=== PATIENT | male | born 1955 | race American Indian/Alaskan Native ===

== ENCOUNTER 2017-04-03 17:19 | Inpatient (IN) | payer OTHER ==
[2017-04-03 18:20] LABS: MEAN CELL VOLUME 78.4 fL (80.0-105.0); MEAN PLATELET VOLUME 9.9 fl (7.0-11.0); PLATELET COUNT 427 10^3/uL (120.0-450.0); RED CELL DISTRIBUTION WIDTH 16.5 % (11.5-14.5); WHITE BLOOD COUNT 11.8 10^3/ul (4.5-11.0)
[2017-04-03 18:22] LABS: ALBUMIN 4.1 g/dL (3.0-4.8); ALT/SGPT 19 U/L (7-56); AST/SGOT 25 U/L (15-59); BLOOD UREA NITROGEN 11 mg/dL (7-21); CALCIUM 9.3 mg/dL (8.4-10.5); GFR AFRICAN-AMERICAN > 60; GFR NON-AFRICAN AMERICAN > 60
--- NOTE | 2017-04-03 18:26 | ED PDOC ---
Arrival/HPI <Rodolfo Villalpando - Last Filed: 04/03/17 19:14> <Sigifredo Cuello - Last Filed: 04/03/17 22:50> - General Chief Complaint: Abdominal Pain Time Seen by Provider: 04/03/17 17:26 - History of Present Illness Narrative History of Present Illness (Text): 04/03/17 18:04 Mr. Carcamo is a 62 year old male with past medical history significant for DM2, Hypertension, and elevated cholesterol who presents with a 24 hour history of abdominal pain. Pt reports yesterday around noon he ate sausage links and fries and following his meal he began to experience abdominal discomfort. He describes the pain as an intermittent sharp pain located primarily mid epigastrium with associated left sided abdominal pain. The pain is worsened with palpation with no relieving factors reported. He has experienced nausea and vomiting. He denies chest pressure, shortness of breath, pleuritic pain, or change in bowel. (Sigifredo Cuello) Past Medical History - Provider Review Nursing Documentation Reviewed: Yes - Cardiac Hx Hypertension: Yes - Endocrine/Metabolic Hx Diabetes Mellitus Type 2: Yes - Psychiatric Hx Substance Use: No - Suicidal Assessment Feels Threatened In Home Enviroment: No <Sigifredo Cuello - Last Filed: 04/03/17 22:50> Family/Social History - Physician Review Nursing Documentation Reviewed: Yes Family/Social History: No Known Family HX Smoking Status: Unknown If Ever Smoked Hx Alcohol Use: No Hx Substance Use: No <Sigifredo Cuello - Last Filed: 04/03/17 22:50> Allergies/Home Meds <Rodolfo Villalpando - Last Filed: 04/03/17 19:14> <Sigifredo Cuello - Last Filed: 04/03/17 22:50> Allergies/Adverse Reactions: Allergies No Known Allergies Allergy (Unverified 06/20/13 19:09) Home Medications: Home Meds Medication Instructions Recorded Confirmed No Known Home Med 04/03/17 04/03/17 Review of Systems - Physician Review All systems were reviewed & negative as marked: Yes - Review of Systems Constitutional: absent: Fevers Eyes: absent: Vision Changes Respiratory: absent: SOB, Cough Cardiovascular: absent: Chest Pain, Palpitations Gastrointestinal: Abdominal Pain, Nausea, Vomiting. absent: Stool Changes Genitourinary Male: Frequency (increased ). absent: Dysuria Skin: absent: Rash, Skin Lesions Neurological: absent: Headache, Dizziness, Focal Weakness <Sigifredo Cuello - Last Filed: 04/03/17 22:50> Physical Exam Vital Signs Reviewed: Yes Temperature: Afebrile Blood Pressure: Normal Pulse: Tachycardic Respiratory Rate: Normal Appearance: Positive for: Uncomfortable Pain Distress: Moderate Mental Status: Positive for: Alert and Oriented X 3 - Systems Exam Head: Present: Atraumatic, Normocephalic Pupils: Present: PERRL Extroacular Muscles: Present: EOMI Conjunctiva: Present: Normal Mouth: Present: Dry. No: Normal Teeth (poor dentation ) Respiratory/Chest: Present: Clear to Auscultation, Good Air Exchange. No: Respiratory Distress, Accessory Muscle Use Cardiovascular: Present: Regular Rate and Rhythm, Normal S1, S2, Tachycardic. No: Murmurs Abdomen: Present: Tenderness (TTP mid epigastric, LLQ, LUQ). No: Peritoneal Signs Upper Extremity: Present: Normal Inspection. No: Cyanosis, Edema Lower Extremity: Present: Normal Inspection Neurological: Present: GCS=15, CN II-XII Intact, Speech Normal Psychiatric: Present: Alert, Oriented x 3, Normal Insight, Normal Concentration <Sigifredo Cuello - Last Filed: 04/03/17 22:50> Vital Signs Temp Pulse Resp BP Pulse Ox 04/03/17 21:25 104 H 16 140/80 98 04/03/17 20:01 102 H 18 128/71 99 04/03/17 19:00 112 H 18 126/74 99 04/03/17 17:19 99.2 F 126 H 17 148/90 96 Medical Decision Making <Rodolfo Villalpando - Last Filed: 04/03/17 19:14> - Lab Interpretations I have reviewed the lab results: Yes - EKG Interpretation Interpreted by ED Physician: Yes Type: 12 lead EKG <Sigifredo Cuello - Last Filed: 04/03/17 22:50> ED Course and Treatment: 04/03/17 18:54 Patient seen and examined with resident Came up with treatment and disposition plan with resident 62yo male with hx of DM, states he is non-compliant with his metformin. presents with nausea, abd pain labs show a gap, CO2 6, Glu >400 likely DKA VBG ordered fluids, insulin drip ordered (k 4.4) mohnii Lebron from MICU, accepted admission pt states he has no PMD at this hospital Dr. Jean Baptiste covering paged 04/03/17 19:14 mohini Sands, accepted to Dr. Jean Baptiste' service pt aware of and agrees with plan (Rodolfo Villalpando) 04/03/17 18:28 Impression: Mr. Carcamo is a 62 year old male with past medical history of DM2, Hypertension, and elevated cholesterol who presents with abdominal discomfort for the past 24 hours. Differential Diagnosis included but are not limited to: - DKA - Gastritis - Diverticulitis Plan: - Labs: CBC, CMP, VBG - Imaging: EKG, CT abdomen and pelvis with IV contrast - Meds: IVF NS bolus, Insulin gtt - Reassess and disposition Progress Notes: (Sigifredo Cuello) - Lab Interpretations Lab Results: 04/03/17 17:50 04/03/17 21:45 Lab Results 04/03/17 21:45: Sodium 134, Potassium 4.2, Chloride 106, Carbon Dioxide 9 L D, Anion Gap 23 H, BUN 11, Creatinine 0.9, Est GFR ( Amer) > 60, Est GFR ( Non-Af Amer) > 60, Random Glucose 300 H, Calcium 8.3 L, Amylase 320 H, Lipase 3186 H 04/03/17 19:05: Urine Color Yellow, Urine Appearance Clear, Urine pH 6.0, Ur Specific [place] 1.015, Urine Protein 30 H, Urine Glucose (UA) >=1000, Urine Ketones >=80, Urine Blood Small H, Urine Nitrate Negative, Urine Bilirubin Negative, Urine Urobilinogen 0.2, Ur Leukocyte Esterase Negative, Urine RBC 1 - 3, Urine WBC 0 - 2, Ur Epithelial Cells 0 - 2 04/03/17 19:00: pO2 65 H, VBG pH 7.31 L, VBG pCO2 26.0 L, VBG HCO3 13.1 L, VBG Total CO2 13.9 L, VBG O2 Sat (Calc) 93.2 H, VBG Base Excess -11.5 L, VBG Potassium 4.6, Glucose 441 H*, Lactate 2.0, FiO2 21.0, Sodium 135.0, Chloride 100.0, Venous Blood Potassium 4.6 04/03/17 17:50: Sodium 134, Potassium 4.4, Chloride 101, Carbon Dioxide 7 L, Anion Gap 30 H, BUN 11, Creatinine 1.0, Est GFR ( Amer) > 60, Est GFR ( Non-Af Amer) > 60, Random Glucose 423 H*, Calcium 9.3, Total Bilirubin 1.0, AST 25, ALT 19, Alkaline Phosphatase 144 H, Total Protein 8.2, Albumin 4.1, Globulin 4.2, Albumin/Globulin Ratio 1.0 L, Lipase 4438 H 04/03/17 17:50: WBC 11.8 H, RBC 5.00, Hgb 15.3, Hct 39.2 L, MCV 78.4 L, MCH 30.6 , MCHC 39.0 H, RDW 16.5 H, Plt Count 427, MPV 9.9, Neutrophils % (Manual) 81 H, Band Neutrophils % 3 H, Lymphocytes % (Manual) 7 L, Monocytes % (Manual) 9 H, Platelet Evaluation Normal - RAD Interpretation Radiology Orders: 04/03/17 19:15 CHEST PORTABLE [RAD] Stat 04/03/17 19:17 ABD PELVIS PO & IV CONTRAST [CT] Stat - EKG Interpretation EKG Interpretation (Text): 04/03/17 18:46 NSR, Rate 119, left axis deviation, No ST elevations or T wave inversions ( Sigifredo Cuello) - Medication Orders Current Medication Orders: Insulin Human Regular 100 (units/ Sodium Chloride) 100 mls @ 10 mls/hr IV .Q10H PRN; Protocol; 10 UNITS/HR PRN Reason: TITRATE PER PROTOCOL Discontinued Medications Sodium Chloride (Sodium Chloride 0.9%) 1,000 mls @ 100 mls/hr IV .Q10H BUNNY Last Admin: 04/03/17 18:54 Dose: 100 mls/hr Sodium Chloride (Sodium Chloride 0.9%) 2,000 mls @ 1,000 mls/hr IV .Q2H STA Stop: 04/03/17 20:33 Last Admin: 04/03/17 18:53 Dose: 1,000 mls/hr Insulin Human Regular 100 (units/ Sodium Chloride) 100 mls @ 10 mls/hr IV .Q10H PRN; Protocol; 10 UNITS/HR PRN Reason: TITRATE PER MD ORDER Last Admin: 04/03/17 20:49 Dose: 3 mls/hr Comments: as per protocol 276 FS Sodium Chloride (Sodium Chloride 0.9%) 2,000 mls @ 999 mls/hr IV .Q2H1M STA Stop: 04/03/17 21:30 Last Admin: 04/03/17 20:24 Dose: Sodium Chloride (Sodium Chloride 0.9%) 1,000 mls @ 500 mls/hr IV .Q2H BUNYN Stop: 04/03/17 22:44 Last Admin: 04/03/17 22:08 Dose: 500 mls/hr Insulin Human Regular 100 (units/ Sodium Chloride) 100 mls @ 10 mls/hr IV .Q10H PRN; Protocol; 10 UNITS/HR PRN Reason: TITRATE PER PROTOCOL Last Admin: 04/03/17 21:52 Dose: 4 mls/hr Comments: 4 units as per sliding scale protocol for blood sugar of 303 Iohexol (Omnipaque 240 (50 Ml)) Confirm Administered Dose 100 ml .ROUTE .STK- MED ONE Stop: 04/03/17 19:40 Iohexol (Omnipaque 350 100 Ml) Confirm Administered Dose 350 mg .ROUTE .STK-MED ONE Stop: 04/03/17 19:40 - PA / [employer] / Resident Statement / has reviewed & agrees with the documentation as recorded. / has examined the patient and agrees with the treatment plan. <Sigifredo Cuello - Last Filed: 04/03/17 22:50> Disposition/Present on Arrival - Present on Arrival Any Indicators Present on Arrival: No - Disposition Have Diagnosis and Disposition been Completed?: Yes Disposition Time: 18:56 Patient Plan: Admission, ICU <Rodolfo Villalpando - Last Filed: 04/03/17 19:14> - Present on Arrival Any Indicators Present on Arrival: No History of DVT/PE: No History of Uncontrolled Diabetes: No Urinary Catheter: No History of Decub. Ulcer: No History Surgical Site Infection Following: None - Disposition Have Diagnosis and Disposition been Completed?: Yes Patient Plan: Admission, ICU <Sigifredo Cuello - Last Filed: 04/03/17 22:50> - Disposition Diagnosis: DKA (diabetic ketoacidoses) Disposition: HOSPITALIZED Condition: STABLE
[2017-04-03 18:28] LABS: HEMOGLOBIN 15.3 gm/dL (14.0-18.0)
[2017-04-03 18:29] LABS: MEAN CORPUSCULAR HEMOGLOBIN 30.6 pg (25.0-35.0)
[2017-04-03] MEDS ORDERED: Sodium Chloride 0.9% 2,000 ML IV STA ×2 (18:34→19:30)
[2017-04-03] MEDS ORDERED: Sodium Chloride 0.9% 1,000 ML IV SCH (18:45)
[2017-04-03 18:54] LABS: BAND 3 % (0-2)
[2017-04-03 18:55] LABS: LYMPHOCYTE 7 % (22.0-35.0); MONOCYTE 9 % (1.0-6.0); NEUTROPHIL 81 % (50.0-70.0); PLATELET ESTIMATE NORMAL (NORMAL)
[2017-04-03 19:08] LABS: VENOUS BLOOD GAS BASE EXCESS -11.5 mmol/L (0.0-2.0); VENOUS BLOOD GAS PO2 65 mm/Hg (30-55); VENOUS BLOOD PH 7.31 (7.32-7.43)
[2017-04-03 19:15] LABS: URINE BILIRUBIN NEGATIVE (NEGATIVE); URINE BLOOD SMALL (NEGATIVE); URINE GLUCOSE (UA) >=1000 mg/dL (NEGATIVE); URINE LEUKOCYTE ESTERASE NEGATIVE Leu/uL (NEGATIVE); URINE NITRATE NEGATIVE (NEGATIVE); URINE PROTEIN 30 mg/dL (<30 mg/dL); URINE UROBILINOGEN 0.2 E.U./dL (<1 E.U./dL)
[2017-04-03 19:21] LABS: URINE APPEARANCE CLEAR (CLEAR); URINE COLOR YELLOW (YELLOW)
[2017-04-03 19:21] LABS: LIPASE 4438 U/L (23-300)
[2017-04-03] MEDS: Insulin Regular 100 UNITS in Sodium Chloride 0.9% 99 ML IV PRN ×3 (19:30→20:49)
--- NOTE | 2017-04-03 19:30 | CP.PCM.CON ---
History of Present Illness - History of Present Illness History of Present Illness: 62 y/o M w/ HTN, DM who has been without medications for grater than 1 year presented to the [facility] after 6 episodes of vomiting that occurred starting yesterday . He explains that he ate out somewhere new and then felt bad afterwards. Since then he has been urinating frequently and having abd pain. Review of Systems - Constitutional Constitutional: Malaise - EENT Eyes: absent: As Per HPI, Blind Spots, Blurred Vision, Change in Vision, Decreased Night Vision, Diplopia, Discharge, Dry Eye, Exophthalmos, Floaters, Irritation, Itchy Eyes, Loss of Peripheral Vision, Pain, Photophobia, Requires Corrective Lenses, Sees Flashes, Spots in Vision, Tunnel Vision, Other Visual Disturbances, Loss of Vision, Other Ears: absent: As Per HPI, Decreased Hearing, Ear Discharge, Ear Pain, Tinnitus, Abnormal Hearing, Disequilibrium, Dizziness, Other Nose/Mouth/Throat: absent: As Per HPI, Epistaxis, Nasal Congestion, Nasal Discharge, Nasal Obstruction, Nasal Trauma, Nose Pain, Post Nasal Drip, Sinus Pain, Sinus Pressure, Bleeding Gums, Change in Voice, Dental Pain, Dry Mouth, Dysphagia, Halitosis, Hoarsness, Lip Swelling, Mouth Lesions, Mouth Pain, Odynophagia, Sore Throat, Throat Swelling, Tongue Swelling, Facial Pain, Neck Pain, Neck Mass, Other - Cardiovascular Cardiovascular: absent: As Per HPI, Acrocyanosis, Chest Pain, Chest Pain at Rest , Chest Pain with Activity, Claudication, Diaphoresis, Dyspnea, Dyspnea on Exertion, Edema, Irregular Heart Rhythm, Pain Radiating to Arm/Neck/Jaw, Leg Edema, Leg Ulcers, Lightheadedness, Orthopnea, Palpitations, Paroxysmal Nocturnal Dyspnea, Pedal Edema, Radiating Pain, Rapid Heart Rate, Slow Heart Rate, Syncope, Other - Respiratory Respiratory: absent: As Per HPI, Cough, Dyspnea, Hemoptysis, Dyspnea on Exertion , Wheezing, Snoring, Stridor, Pain on Inspiration, Chest Congestion, Excessive Mucous Production, Change in Mucous Color, Pain with Coughing, Other - Gastrointestinal Gastrointestinal: Abdominal Pain, Belching, Bloating, Dyspepsia - Genitourinary Genitourinary: absent: As Per HPI, Change in Urinary Stream, Difficulty Urinating, Dysuria, Flank Pain, Hematuria, Pyuria, Nocturia, Urinary Incontinence, Urinary Frequency, Urinary Hesitance, Urinary Urgency, Voiding Freq/Small Amts, Freq UTI, Hx Renal/Bladder Calculi, Hx /Renal Surgery, Bladder Distension, Other - Reproductive: Male Reproductive:Male: As Per HPI, Prepubesant, Dyspareunia, Genital Lesions, Genital Pruritis, Pelvic Pain, Sexual Dysfunction, Penile Discharge, Genital Odor, Impotence, On ED Medications, Penile Implant, Other - Musculoskeletal Musculoskeletal: absent: As Per HPI, Abnormal Gait, Arthralgias, Atrophy, Back Pain, Deformity, Joint Swelling, Limited Range of Motion, Loss of Height, Muscle Cramps, Muscle Weakness, Myalgias, Neck Pain, Numbness, Radiating Pain into Limb, Stiffness, Tingling, Other - Integumentary Integumentary: absent: As Per HPI, Acne, Alopecia, Bleeding Lesions, Change in Hair, Change in Nails, Change in Pigmentation, Changing Lesions, Dry Skin, Erythema, Furuncle, Hirsutism, Lesions, New Lesions, Non-Healing Lesions, Photosensitivity, Pruritus, Rash, Skin Pain, Skin Ulcer, Sores, Striae, Swelling , Unusual Bruising, Wounds, Jaundice, Other - Neurological Neurological: absent: As Per HPI, Abnormal Gait, Abnormal Hearing, Abnormal Movements, Abnormal Speech, Behavioral Changes, Burning Sensations, Confusion, Convulsions, Disequilibrium, Dizziness, Numbness, Focal Weakness, Frequent Falls , Headaches, Lack of Coordination, Loss of Vision, Memory Loss, Paresthesias, Radicular Pain, Restless Legs, Sensory Deficit, Syncope, Tingling, Tremor, Vertigo, Weakness, Other Visual Disturbances, Other Past Patient History - Past Social History Smoking Status: Unknown If Ever Smoked - CARDIAC Hx Hypertension: Yes - ENDOCRINE/METABOLIC Hx Diabetes Mellitus Type 2: Yes - PSYCHIATRIC Hx Substance Use: No - SURGICAL HISTORY Hx Surgeries: Yes Meds Allergies/Adverse Reactions: Allergies Allergy/AdvReac Type Severity Reaction Status Date / Time No Known Allergies Allergy Unverified 06/20/13 19:09 - Medications Medications: Current Medications Sodium Chloride (Sodium Chloride 0.9%) 1,000 mls @ 100 mls/hr IV .Q10H BUNNY Last Admin: 04/03/17 18:54 Dose: 100 mls/hr Sodium Chloride (Sodium Chloride 0.9%) 2,000 mls @ 1,000 mls/hr IV .Q2H STA Stop: 04/03/17 20:33 Last Admin: 04/03/17 18:53 Dose: 1,000 mls/hr Insulin Human Regular 100 (units/ Sodium Chloride) 100 mls @ 10 mls/hr IV .Q10H PRN; Protocol; 10 UNITS/HR PRN Reason: TITRATE PER MD ORDER Physical Exam - Constitutional Appears: Unkempt - Head Exam Head Exam: ATRAUMATIC, NORMAL INSPECTION - Eye Exam Eye Exam: EOMI, Normal appearance Pupil Exam: NORMAL ACCOMODATION - ENT Exam ENT Exam: Mucous Membranes Moist - Respiratory Exam Respiratory Exam: Clear to Auscultation Bilateral - Cardiovascular Exam Cardiovascular Exam: REGULAR RHYTHM - GI/Abdominal Exam GI & Abdominal Exam: Guarding, Normal Bowel Sounds, Tenderness - Extremities Exam Extremities exam: Positive for: normal inspection - Back Exam Back exam: NORMAL INSPECTION - Neurological Exam Neurological exam: Alert, CN II-XII Intact, Oriented x3 Results - Vital Signs Recent Vital Signs: Last Vital Signs Temp 99.2 F 04/03/17 17:19 Pulse 126 H 04/03/17 17:19 Resp 17 04/03/17 17:19 BP 148/90 04/03/17 17:19 Pulse Ox 96 04/03/17 17:19 - Labs Result Diagrams: 04/03/17 17:50 04/03/17 17:50 Labs: Laboratory Results - last 24 hr 04/03/17 04/03/17 04/03/17 17:50 17:50 19:00 WBC 11.8 H RBC 5.00 Hgb 15.3 Hct 39.2 L MCV 78.4 L MCH 30.6 MCHC 39.0 H RDW 16.5 H Plt Count 427 MPV 9.9 Neutrophils % (Manual) 81 H Band Neutrophils % 3 H Lymphocytes % (Manual) 7 L Monocytes % (Manual) 9 H Platelet Evaluation Normal pO2 65 H VBG pH 7.31 L VBG pCO2 26.0 L VBG HCO3 13.1 L VBG Total CO2 13.9 L VBG O2 Sat (Calc) 93.2 H VBG Base Excess -11.5 L VBG Potassium 4.6 Glucose 441 H* Lactate 2.0 FiO2 21.0 Sodium 134 135.0 Potassium 4.4 Chloride 101 100.0 Carbon Dioxide 7 L Anion Gap 30 H BUN 11 Creatinine 1.0 Est GFR ( Amer) > 60 Est GFR (Non-Af Amer) > 60 Random Glucose 423 H* Calcium 9.3 Total Bilirubin 1.0 AST 25 ALT 19 Alkaline Phosphatase 144 H Total Protein 8.2 Albumin 4.1 Globulin 4.2 Albumin/Globulin Ratio 1.0 L Lipase 4438 H Venous Blood Potassium 4.6 Urine Color Urine Appearance Urine pH Ur Specific [place] Urine Protein Urine Glucose (UA) Urine Ketones Urine Blood Urine Nitrate Urine Bilirubin Urine Urobilinogen Ur Leukocyte Esterase 04/03/17 19:05 WBC RBC Hgb Hct MCV MCH MCHC RDW Plt Count MPV Neutrophils % (Manual) Band Neutrophils % Lymphocytes % (Manual) Monocytes % (Manual) Platelet Evaluation pO2 VBG pH VBG pCO2 VBG HCO3 VBG Total CO2 VBG O2 Sat (Calc) VBG Base Excess VBG Potassium Glucose Lactate FiO2 Sodium Potassium Chloride Carbon Dioxide Anion Gap BUN Creatinine Est GFR ( Amer) Est GFR (Non-Af Amer) Random Glucose Calcium Total Bilirubin AST ALT Alkaline Phosphatase Total Protein Albumin Globulin Albumin/Globulin Ratio Lipase Venous Blood Potassium Urine Color Yellow Urine Appearance Clear Urine pH 6.0 Ur Specific [place] 1.015 Urine Protein 30 H Urine Glucose (UA) >=1000 Urine Ketones >=80 Urine Blood Small H Urine Nitrate Negative Urine Bilirubin Negative Urine Urobilinogen 0.2 Ur Leukocyte Esterase Negative Assessment & Plan - Assessment and Plan (Free Text) Assessment: 62 y/o M w/ DKA AG metabolic acidosis Non compliant with medications Increased AG w/ elevated BS . Started on DKA protocol. 3-5L of N.S to be given. Insulin drip started to protocol, Replace K once it reaches 4. BMP q 4hrs . Replace Mg. NPO. Once BS< 250 change fluids to D%HS @ 150ml/hr . Once AG closed then overlap Long acting insulin with the insulin drip and also start Insulin sliding scale. CT abd/ pelvis w/ contrast to r/o any colitis/ perforation of bowel. Lactate , WBC minimal elevation. May need ABX after CT is completed. Serial abd exam needed and may need surgical consult . Amylase, Lipase pending. dvt p PPi CC time 65 min
[2017-04-03] MEDS ORDERED: Iohexol 350 MG/100 ML VIAL ONE (19:39)
[2017-04-03] MEDS ORDERED: Iohexol 240 (50 ml) ONE (19:39)
[2017-04-03 19:40] LABS: URINE EPITHELIAL CELLS 0 - 2 /hpf (0-5); URINE WBC 0 - 2 /hpf (0-6)
--- NOTE | 2017-04-03 19:56 | CP.PCM.HP ---
History of Present Illness - History of Present Illness History of Present Illness: Patient is a 62 year old male PMH DM II, HTN, HLD who presents [place] [facility] on 04/03/17 with complaints of diffuse abdominal pain which started 04/02/17 around 12:30 pm after eating sausage and fries. Patient states that the pain has continued until now. He states that the pain starts in the epigastric area and radiates bilaterally down to the suprapubic area and around his back on the right side. He states that the pain is neither dull nor sharp and rates it at an 8/10. The pain is exacerbated depending on position, with laying on his right side causing increased pain and laying on his left side causing decreased pain. He denies any relieving factors. Laying on his left side allows him to sleep throughout the night, however immediately upon awakening the pain returns. Patient denies being woken up due to pain itself. Patient states that when he was first diagnosed with DM II two years ago he was prescribed janumet, but after a year his glucose levels were good enough that his PMD switched him to januvia and invocana. After seeing commercials regarding lawsuits against invocana he decided to stop taking the medication all together, and has not taken his DM medications in one year. He also decided to stop taking his HTN and HLD medications as well. He states that since then he has gained some weight. He continues to monitor his sugars with levels ranging normally in the 200s. His last finger stick at home today revealed a level in the 400s according to patient. Patient denies chest pain, shortness of breath, headache, numbness and tingling. Present on Admission - Present on Admission Any Indicators Present on Admission: No Review of Systems - Constitutional Constitutional: Weight Gain. absent: Headache, Increased Appetite - EENT Eyes: absent: Blurred Vision, Loss of Vision - Cardiovascular Cardiovascular: absent: Chest Pain, Palpitations - Respiratory Respiratory: absent: Dyspnea, Wheezing - Gastrointestinal Gastrointestinal: Abdominal Pain, Nausea, Vomiting - Neurological Neurological: absent: Dizziness, Numbness, Headaches Past Patient History - Past Social History Smoking Status: Unknown If Ever Smoked - CARDIAC Hx Hypertension: Yes - ENDOCRINE/METABOLIC Hx Diabetes Mellitus Type 2: Yes - PSYCHIATRIC Hx Substance Use: No - SURGICAL HISTORY Hx Surgeries: Yes Meds Allergies/Adverse Reactions: Allergies Allergy/AdvReac Type Severity Reaction Status Date / Time No Known Allergies Allergy Unverified 06/20/13 19:09 Physical Exam - Constitutional Appears: In Acute Distress, Agitated - Head Exam Head Exam: ATRAUMATIC, NORMAL INSPECTION, NORMOCEPHALIC - Eye Exam Eye Exam: EOMI, Normal appearance - ENT Exam ENT Exam: Mucous Membranes Moist, Normal Exam - Neck Exam Neck exam: Positive for: Normal Inspection - Respiratory Exam Respiratory Exam: Clear to Auscultation Bilateral, NORMAL BREATHING PATTERN - Cardiovascular Exam Cardiovascular Exam: REGULAR RHYTHM, RRR, +S1, +S2 - GI/Abdominal Exam GI & Abdominal Exam: Normal Bowel Sounds, Soft - Extremities Exam Extremities exam: Positive for: normal inspection. Negative for: joint swelling - Neurological Exam Neurological exam: Alert, Oriented x3 - Skin Skin Exam: Dry, Normal Color, Warm Results - Vital Signs Recent Vital Signs: Last Vital Signs Temp 99.2 F 04/03/17 17:19 Pulse 126 H 04/03/17 17:19 Resp 17 04/03/17 17:19 BP 148/90 04/03/17 17:19 Pulse Ox 96 04/03/17 17:19 - Labs Result Diagrams: 04/04/17 04:05 04/04/17 04:05 Labs: Laboratory Results - last 24 hr 04/03/17 04/03/17 04/03/17 17:50 17:50 19:00 WBC 11.8 H RBC 5.00 Hgb 15.3 Hct 39.2 L MCV 78.4 L MCH 30.6 MCHC 39.0 H RDW 16.5 H Plt Count 427 MPV 9.9 Neutrophils % (Manual) 81 H Band Neutrophils % 3 H Lymphocytes % (Manual) 7 L Monocytes % (Manual) 9 H Platelet Evaluation Normal pO2 65 H VBG pH 7.31 L VBG pCO2 26.0 L VBG HCO3 13.1 L VBG Total CO2 13.9 L VBG O2 Sat (Calc) 93.2 H VBG Base Excess -11.5 L VBG Potassium 4.6 Glucose 441 H* Lactate 2.0 FiO2 21.0 Sodium 134 135.0 Potassium 4.4 Chloride 101 100.0 Carbon Dioxide 7 L Anion Gap 30 H BUN 11 Creatinine 1.0 Est GFR ( Amer) > 60 Est GFR (Non-Af Amer) > 60 Random Glucose 423 H* Calcium 9.3 Total Bilirubin 1.0 AST 25 ALT 19 Alkaline Phosphatase 144 H Total Protein 8.2 Albumin 4.1 Globulin 4.2 Albumin/Globulin Ratio 1.0 L Lipase 4438 H Venous Blood Potassium 4.6 Urine Color Urine Appearance Urine pH Ur Specific [place] Urine Protein Urine Glucose (UA) Urine Ketones Urine Blood Urine Nitrate Urine Bilirubin Urine Urobilinogen Ur Leukocyte Esterase Urine RBC Urine WBC Ur Epithelial Cells 04/03/17 19:05 WBC RBC Hgb Hct MCV MCH MCHC RDW Plt Count MPV Neutrophils % (Manual) Band Neutrophils % Lymphocytes % (Manual) Monocytes % (Manual) Platelet Evaluation pO2 VBG pH VBG pCO2 VBG HCO3 VBG Total CO2 VBG O2 Sat (Calc) VBG Base Excess VBG Potassium Glucose Lactate FiO2 Sodium Potassium Chloride Carbon Dioxide Anion Gap BUN Creatinine Est GFR ( Amer) Est GFR (Non-Af Amer) Random Glucose Calcium Total Bilirubin AST ALT Alkaline Phosphatase Total Protein Albumin Globulin Albumin/Globulin Ratio Lipase Venous Blood Potassium Urine Color Yellow Urine Appearance Clear Urine pH 6.0 Ur Specific [place] 1.015 Urine Protein 30 H Urine Glucose (UA) >=1000 Urine Ketones >=80 Urine Blood Small H Urine Nitrate Negative Urine Bilirubin Negative Urine Urobilinogen 0.2 Ur Leukocyte Esterase Negative Urine RBC 1 - 3 Urine WBC 0 - 2 Ur Epithelial Cells 0 - 2 Assessment & Plan - Assessment and Plan (Free Text) Assessment: 62 year old male with PMH DM HTN HLD presented to [facility] 04/03/17 with DKA and pancreatitis. Plan: 1. DKA - Anion gap 30, Glucose 441, Bicarb 100 - Humulin R 100 units IV 10 units/hr - Potassium chloride 20 meq, once potassium level reaches near 4.0. - Finger stick glucose q 1hour - Neurocheck q1 hour - Vital signs q1 Hour - Patient education on importance of medication compliance 2. Pancreatitis - Continue with NPO - CT abdomen demonstrates enlargement of pancreas with edema and loss of normal fatty lobulation. Findings consistent with acute pancreatitis. - Lipase 3186, Amylase 320 - Continue to monitor I/O - Patient is receiving 0.9% NS 1,000ml IV 999 mls/hr DVT/GI prophylaxis- Pepcid 20 mg IVp daily and knee SCDs
[2017-04-03] MEDS: Sodium Chloride 0.9% 1,000 ML IV SCH ×2 (20:24→22:08)
[2017-04-03 21:59] LABS: AMYLASE 320 U/L (35-125); BLOOD UREA NITROGEN 11 mg/dL (7-21); CALCIUM 8.3 mg/dL (8.4-10.5); GFR AFRICAN-AMERICAN > 60; GFR NON-AFRICAN AMERICAN > 60
[2017-04-03 22:06] LABS: LIPASE 3186 U/L (23-300)
[2017-04-03 22:42] LABS: MAGNESIUM 2.2 mg/dL (1.7-2.2)
[2017-04-03 22:50] LABS: VENOUS BLOOD GAS BASE EXCESS -11.3 mmol/L (0.0-2.0); VENOUS BLOOD GAS PO2 206 mm/Hg (30-55)
[2017-04-03 22:56] LABS: TROPONIN I < 0.01 ng/mL
[2017-04-03] MEDS ORDERED: DiphenhydrAMINE 50 mg/ml Inj IVP STA (23:57)
[2017-04-04] MEDS: Sodium Chloride 0.9% 1,000 ML IV SCH ×2 (00:03→09:33)
--- NOTE | 2017-04-04 00:08 | CT ---
EXAM: CT Abdomen and Pelvis With Intravenous Contrast CLINICAL HISTORY: 62 years old, male; Pain; Abdominal pain; Acute; Additional info: Abd pain TECHNIQUE: Axial computed tomography images of the abdomen and pelvis with intravenous contrast. This CT exam was performed using one or more of the following dose reduction techniques: automated exposure control, adjustment of the mA and/or kV according to patient size, and/or use of iterative reconstruction technique. Coronal and sagittal reformatted images were created and reviewed. CONTRAST: 100 mL of OMNI 3510 administered intravenously. COMPARISON: No relevant prior studies available. FINDINGS: Lower thorax: Bibasilar atelectasis, left greater than right. The heart is enlarged, without pericardial effusion. ABDOMEN: Liver: No acute findings. Gallbladder and bile ducts: The gallbladder is decompressed. No calcified stones. No significant intra- or extrahepatic biliary ductal dilation. Pancreas: Enlargement of the pancreas, with edema and loss of normal fatty lobulation. Peripancreatic fat stranding is also present, along with trace free fluid. The pancreas enhances homogeneously, without areas suggesting necrosis. Spleen: No acute findings. Adrenals: No acute findings. Kidneys and ureters: No acute findings. No hydronephrosis or renal calculi. No discrete solid mass. PELVIS: Bladder: Moderate bladder distention. As Reproductive: No acute findings. Appendix: The air filled appendix is of normal caliber (series 2, image 135; series 601, image 59). ABDOMEN and PELVIS: Stomach and bowel: No obstruction. No mucosal thickening. Peritoneum: As above. Lymph nodes: Multiple enlarged lymph nodes within the retroperitoneum. Vasculature: Calcified atherosclerotic disease Bones: No acute fracture. IMPRESSION: Findings consistent with acute pancreatitis, as detailed above. No evidence of necrosis.
[2017-04-04 00:42] LABS: BLOOD UREA NITROGEN 10 mg/dL (7-21); CALCIUM 8.1 mg/dL (8.4-10.5); GFR AFRICAN-AMERICAN > 60; GFR NON-AFRICAN AMERICAN > 60
[2017-04-04 00:53] VITALS: BMI 32.0
[2017-04-04 04:27] LABS: BLOOD UREA NITROGEN 10 mg/dL (7-21); CALCIUM 8.4 mg/dL (8.4-10.5); GFR AFRICAN-AMERICAN > 60; GFR NON-AFRICAN AMERICAN > 60
[2017-04-04 05:10] LABS: HDL CHOLESTEROL 27 mg/dL (29-60); MAGNESIUM 2.2 mg/dL (1.7-2.2)
[2017-04-04 05:27] LABS: BASO # 0.02 K/mm3 (0.0-2.0); BASO % 0.2 % (0.0-3.0); EOS % 0.2 % (1.5-5.0); GRAN # 7.57 (1.4-6.5); GRAN % 79.2 % (50.0-68.0); HEMOGLOBIN 12.2 gm/dL (14.0-18.0); LYMPH % 10.1 % (22.0-35.0); MEAN CORPUSCULAR HEMOGLOBIN 27.9 pg (25.0-35.0); MEAN CORPUSCULAR HGB CONC 35.8 g/dl (31.0-37.0); MEAN PLATELET VOLUME 9.9 fl (7.0-11.0); MONO % 10.3 % (1.0-6.0); PLATELET COUNT 364 10^3/uL (120.0-450.0); RBC 4.37 10^6/uL (3.5-6.1); RED CELL DISTRIBUTION WIDTH 16.4 % (11.5-14.5); WHITE BLOOD COUNT 9.6 10^3/ul (4.5-11.0)
[2017-04-04 05:35] LABS: LDL CHOLESTEROL < 30 mg/dL (0-129)
[2017-04-04 08:44] LABS: BLOOD UREA NITROGEN 9 mg/dL (7-21); CALCIUM 8.5 mg/dL (8.4-10.5); GFR AFRICAN-AMERICAN > 60; GFR NON-AFRICAN AMERICAN > 60
[2017-04-04 08:51] LABS: FREE T4 1.12 ng/dL (0.78-2.19)
[2017-04-04] MEDS: Morphine 2 mg/ml ISec IVP PRN ×2 (11:03→22:02)
--- NOTE | 2017-04-04 11:42 | RAD ---
HISTORY: cough COMPARISON: No prior. FINDINGS: LUNGS: Linear scar/atelectasis both lower lobes. No pulmonary infiltrate. PLEURA: No significant pleural effusion identified, no pneumothorax apparent. CARDIOVASCULAR: Normal. OSSEOUS STRUCTURES: No significant abnormalities. VISUALIZED UPPER ABDOMEN: Normal. OTHER FINDINGS: None. IMPRESSION: No active disease.
--- NOTE | 2017-04-04 11:56 | PN ---
TECHNICIAN ASSISTANT NOTE DATE: 04/04/2017 SUBJECTIVE: The patient is resting in bed, continues to be on the insulin drip and continues to be . He does have a slight abdominal pain, but no nauseous or vomiting, and no diarrhea today. No fever or chills. No wheezing or shortness of breath. PHYSICAL EXAMINATION: VITAL SIGNS: His temperature is 98.6, pulse is 106, respirations of 16, and his blood pressure is 150/93. SKIN: Warm and dry. HEENT: Head is atraumatic and normocephalic. Eyes are reactive to light. Ears, nose, and throat seemed to be within normal limits. NECK: Supple. No JVD. No thyroid enlargement. No lymph nodes. HEART: Regular rate and rhythm, normal S1 and S2. LUNGS: Reveal good breath sounds bilaterally. ABDOMEN: Soft and somewhat tender to palpations. Decreased bowel sounds. GENITAL AND RECTAL: Deferred. MUSCULOSKELETAL: No joint deformities. EXTREMITIES: Revealed no edema. NEUROLOGICAL: He seems to be grossly intact. LABORATORY DATA: As far as our laboratories are concerned the patient's white count is 9.6, hemoglobin is 12.2 and hematocrit 34.1, with platelets of 364,000. Sodium is 140, potassium is 4.0, chloride is 110, CO2 is 14 with a BUN of 10, creatinine of 0.7, and a glucose of 201. The patient's triglycerides are 2283 and cholesterol is 314. IMPRESSION: As far as my impression; this patient presented with diabetes ketoacidosis, has a history of diabetes and also he is noted to have pancreatitis with abdominal pain. He has a history of hypertension as well as hyperlipidemia. PLAN: We will continue with insulin drip and continue with IV fluids. We will follow his labs closely and correct as needed. The patient is on Zofran for any nauseousness. We will continue with the aggressive pulmonary toilet. We will keep him NPO and monitor closely. We will continue to treat aggressively along with other consultants and the primary care doctor. Chaim Izquierdo MD
[2017-04-04 12:48] LABS: BLOOD UREA NITROGEN 9 mg/dL (7-21); CALCIUM 8.4 mg/dL (8.4-10.5); GFR AFRICAN-AMERICAN > 60; GFR NON-AFRICAN AMERICAN > 60
[2017-04-04] MEDS: Dextrose 5%/0.45% NS 1,000 ML IV SCH (15:00)
[2017-04-04 16:49] LABS: BLOOD UREA NITROGEN 9 mg/dL (7-21); CALCIUM 8.3 mg/dL (8.4-10.5); GFR AFRICAN-AMERICAN > 60; GFR NON-AFRICAN AMERICAN > 60
--- NOTE | 2017-04-04 17:19 | CP.PCM.PN ---
<Alejandro Meyer - Last Filed: 04/04/17 17:34> Subjective - Date & Time of Evaluation Date of Evaluation: 04/04/17 Time of Evaluation: 17:14 - Subjective Subjective: Medicine progress note for Dr. Jean Baptiste/Dr. Gonzalez service - Alejandro Meyer PGY2 Patient seen and examined at bedside this morning. No acute overnight events. Patient admitted for DKA as well as acute pancreatitis. Currently in ICU on insulin drip. Diet being advanced as tolerated. Will transition to SQ insulin once gap closes. Denies chest pain, palpitations, SOB. Objective - Vital Signs/Intake and Output Vital Signs (last 24 hours): Temp Pulse Resp BP Pulse Ox 98.6 F 98 H 23 138/74 98 04/04/17 04:00 04/04/17 16:45 04/04/17 16:45 04/04/17 16:45 04/04/17 16:45 Intake and Output: 04/04/17 04/04/17 06:59 18:59 Intake Total 2720 15.5 Output Total 2300 Balance 420 15.5 - Medications Medications: Current Medications Famotidine (Pepcid) 20 mg IVP DAILY [facility] Last Admin: 04/04/17 09:33 Dose: 20 mg Insulin Human Regular 100 (units/ Sodium Chloride) 100 mls @ 10 mls/hr IV .Q10H PRN; Protocol; 10 UNITS/HR PRN Reason: TITRATE PER PROTOCOL Last Titration: 04/04/17 14:00 Dose: 1.5 units/hr, 1.5 mls/hr Dextrose/Sodium Chloride (Dextrose 5%/0.45% Ns 1000 Ml) 1,000 mls @ 100 mls/hr IV .Q10H [facility] Last Admin: 04/04/17 15:00 Dose: 100 mls/hr Potassium Chloride (Potassium Chloride 10 Meq/100 Ml) 10 meq in 100 mls @ 100 mls/hr IVPB Q2H [facility] Stop: 04/04/17 18:59 Last Admin: 04/04/17 16:29 Dose: 100 mls/hr Morphine Sulfate (Morphine) 2 mg IVP Q4H PRN PRN Reason: Pain, moderate (4-7) Last Admin: 04/04/17 11:03 Dose: 2 mg Ondansetron HCl (Zofran Inj) 4 mg IVP Q6H PRN PRN Reason: Nausea/Vomiting - Labs Labs: 04/04/17 04:05 04/04/17 16:10 - Constitutional Appears: Non-toxic, No Acute Distress - Head Exam Head Exam: ATRAUMATIC, NORMAL INSPECTION, NORMOCEPHALIC - Eye Exam Eye Exam: EOMI, PERRL - ENT Exam ENT Exam: Mucous Membranes Moist - Neck Exam Neck Exam: Normal Inspection - Respiratory Exam Respiratory Exam: Clear to Ausculation Bilateral. absent: Rales, Rhonchi, Wheezes - Cardiovascular Exam Cardiovascular Exam: RRR, +S1, +S2. absent: Gallop, Rubs, Murmur - GI/Abdominal Exam GI & Abdominal Exam: Soft. absent: Distended, Firm, Guarding, Rigid, Tenderness , Rebound - Neurological Exam Neurological Exam: Alert, Awake, Oriented x3 - Psychiatric Exam Psychiatric exam: Normal Affect, Normal Mood - Skin Skin Exam: Dry, Intact, Normal Color, Warm Assessment and Plan - Assessment and Plan (Free Text) Plan: 62yo male with history of diabetes mellitus type 2, hypertension, hyperlipidemia admitted to the ICU with diabetic ketoacidosis as well as acute pancreatitis 1. DKA -Continue with BMP q4h -Fingersticks q1h -Vitals q1h -A1C Pending -Anion gap currently 14, continue with insulin drip in the meantime until gap closes; will transition to SQ insulin once gap has closed -Continue with D5 1/2NS with potassium repletion given that K presently under 4.5 -Patient transitioned from NPO to consistent carb diet 2. Acute Pancreatitis -CT abdomen/pelvis reviewed; revealed enlargement of pancreas with edema and loss of normal fatty lobulation. Findings consistent with acute pancreatitis -Lipase 4438 on admission -Patient denies ETOH use; triglycerides 2238 and likely the source of his pancreatitis; -GI consulted - Dr. Glaser -Advance diet as tolerated -Continue to monitor I's and O's 3. DVT/GI prophylaxis -SCD's/Pepcid Patient seen and case discussed with attending, Dr. Gonzalez <Rocky Gonzalez - Last Filed: 04/06/17 17:20> Objective - Vital Signs/Intake and Output Vital Signs (last 24 hours): Temp Pulse Resp BP Pulse Ox 99.2 F 67 13 122/66 98 04/05/17 20:00 07/24/17 16:00 04/06/17 16:00 04/06/17 15:00 04/06/17 16:00 Intake and Output: 04/06/17 04/06/17 06:59 18:59 Intake Total 1106.5 5 Output Total 1200 Balance -93.5 5 - Medications Medications: Current Medications Famotidine (Pepcid) 20 mg IVP DAILY [facility] Last Admin: 04/06/17 10:01 Dose: 20 mg Gemfibrozil (Lopid) 600 mg PO BID [facility] Last Admin: 04/06/17 10:01 Dose: 600 mg Insulin Human Regular 100 (units/ Sodium Chloride) 100 mls @ 10 mls/hr IV .Q10H PRN; Protocol; 10 UNITS/HR PRN Reason: TITRATE PER PROTOCOL Last Titration: 04/06/17 14:31 Dose: 3 units/hr, 3 mls/hr Dextrose/Sodium Chloride (Dextrose 5%/0.45% Ns 1000 Ml) 1,000 mls @ 200 mls/hr IV .Q5H [facility] Last Admin: 04/06/17 14:30 Dose: 200 mls/hr Potassium Chloride (Potassium Chloride 10 Meq/100 Ml) 10 meq in 100 mls @ 100 mls/hr IVPB Q2H [facility] Stop: 04/06/17 19:14 Last Admin: 04/06/17 17:06 Dose: 100 mls/hr Morphine Sulfate (Morphine) 2 mg IVP Q4H PRN PRN Reason: Pain, moderate (4-7) Last Admin: 04/05/17 20:28 Dose: 2 mg Ondansetron HCl (Zofran Inj) 4 mg IVP Q6H PRN PRN Reason: Nausea/Vomiting Simethicone (Mylicon Chew Tab) 80 mg PO BID PRN PRN Reason: GI distress - Labs Labs: 04/06/17 05:35 04/06/17 05:35 Attending/Attestation - Attestation I have personally seen and examined this patient.: Yes I have fully participated in the care of the patient.: Yes I have reviewed all pertinent clinical information, including history, physical exam and plan: Yes Notes (Text): 04/06/17 17:20 Medical record note made by the resident after discussion with my direction and input after the patient was personally seen and examined by me. I have reviewed the chart and agree that the record accurately reflects by personal performance of the history, physical exam, data review, and medical decision-making, in the course for the patient. I have also personally directed the plan of care.
[2017-04-04 20:31] LABS: BLOOD UREA NITROGEN 10 mg/dL (7-21); CALCIUM 8.4 mg/dL (8.4-10.5); GFR AFRICAN-AMERICAN > 60; GFR NON-AFRICAN AMERICAN > 60
--- NOTE | 2017-04-04 20:51 | CARD ---
APPROVED REPORT EKG Measurement Heart [id number] PA [id number] <Conclusion> Sinus tachycardia T wave abnormality, consider lateral ischemia Abnormal ECG
--- NOTE | 2017-04-04 20:51 | CARD ---
APPROVED REPORT EKG Measurement Heart [id number] [place] [id number] <Conclusion> Sinus tachycardia Possible Left atrial enlargement Left axis deviation Abnormal ECG
[2017-04-05 01:23] LABS: BLOOD UREA NITROGEN 8 mg/dL (7-21); CALCIUM 8.4 mg/dL (8.4-10.5); GFR AFRICAN-AMERICAN > 60; GFR NON-AFRICAN AMERICAN > 60
--- NOTE | 2017-04-05 01:51 | CON ---
DATE: 04/04/2017 REASON FOR CONSULTATION: Acute pancreatitis. HISTORY OF PRESENT ILLNESS: This 62-year-old patient with past medical history of diabetes mellitus, hypertension, dyslipidemia, presents to the hospital with complaints of abdominal pain, acute onset of one day duration. He was eating sausage and fries. He had this episode of severe pain mainly in the upper abdominal area. Then later on he felt diffuse. No diarrhea, nausea, no fever. Never experienced similar pain before. Patient was found to be DKA with blood glucose over 400. Patient was also found to have elevated amylase and elevated pancreatic enzymes. Lipase was over 4000 and amylase was 320. Patient's triglyceride was also found to be high, it was 2283. Patient had a CAT scan done which was suggestive of pancreatitis. Patient still has some abdominal pain, but at the time of examination, he was having his supper. This patient is poorly compliant with medication. Diagnosis of diabetes was more than 2 years ago. He was initially compliant. Now, he has not seen the channel marketing program manager and not taking any medication. PAST MEDICAL HISTORY: As above. SOCIAL HISTORY: No smoking.denies ETOH FAMILY HISTORY: Noncontributory. PHYSICAL EXAMINATION GENERAL: Patient is lying on the bed, not in acute distress. VITAL SIGNS: Pulse 98 per minute, respirations 23, O2 saturation is 98%, blood pressure 138/74. HEENT: Atraumatic, anicteric. NECK: Supple. HEART: S1, S2 heard. LUNGS: Bilateral air entry present. ABDOMEN: Diffuse tenderness present. EXTREMITIES: No cyanosis, no clubbing, no edema. NEUROLOGIC: Alert, oriented, moves all the extremities. LABORATORY DATA: Hemoglobin 12.2, hematocrit 34.1, WBC 9.6, platelet 364. Chemistry showed amylase and lipase as above. Lipase is 3186 today. Alkaline phosphatase 144, total bilirubin normal, AST normal. CT findings suggestive of grade 3 pancreatitis. IMPRESSION: This 62-year-old patient with poorly controlled diabetes mellitus, dyslipidemia, hypertension, admitted with acute onset of abdominal pain, found to have an acute pancreatitis, and diabetic ketoacidosis. CT shows significant peripancreatic inflammatory changes. Triglyceride level elevated over 2000. The elevated triglycerides could be secondary to pancreatitis. The etiology is unclear. He denies drinking alcohol. RECOMMENDATIONS: 1. Would recommend strict n.p.o. Continue the insulin drip. 2. Would recommend ultrasound scan of the abdomen. 3. Increase fluid intake with strict monitoring of the intake and output. We will continue to closely followup his care and suggest further management based on the clinical course. Angela Glaser MD AN
[2017-04-05] MEDS: Dextrose 5%/0.45% NS 1,000 ML IV SCH ×3 (02:11→20:22)
[2017-04-05 05:04] LABS: BASO # 0.01 K/mm3 (0.0-2.0); BASO % 0.2 % (0.0-3.0); EOS # 0.1 (0.0-0.7); EOS % 1.4 % (1.5-5.0); GRAN # 3.87 (1.4-6.5); GRAN % 76.9 % (50.0-68.0); HEMOGLOBIN 10.9 gm/dL (14.0-18.0); LYMPH # 0.7 (1.2-3.4); LYMPH % 14.5 % (22.0-35.0); MEAN CELL VOLUME 77.8 fL (80.0-105.0); MEAN CORPUSCULAR HEMOGLOBIN 27.2 pg (25.0-35.0); MEAN CORPUSCULAR HGB CONC 34.9 g/dl (31.0-37.0); MEAN PLATELET VOLUME 9.2 fl (7.0-11.0); MONO # 0.4 (0.1-0.6); PLATELET COUNT 220 10^3/uL (120.0-450.0); RBC 4.01 10^6/uL (3.5-6.1); RED CELL DISTRIBUTION WIDTH 16.9 % (11.5-14.5)
[2017-04-05 05:08] LABS: BLOOD UREA NITROGEN 8 mg/dL (7-21); CALCIUM 8.4 mg/dL (8.4-10.5); GFR AFRICAN-AMERICAN > 60; GFR NON-AFRICAN AMERICAN > 60
[2017-04-05] MEDS: Morphine 2 mg/ml ISec IVP PRN ×2 (07:31→20:28)
[2017-04-05 08:48] LABS: BLOOD UREA NITROGEN 8 mg/dL (7-21); CALCIUM 8.7 mg/dL (8.4-10.5); GFR AFRICAN-AMERICAN > 60; GFR NON-AFRICAN AMERICAN > 60
[2017-04-05 09:14] LABS: HDL CHOLESTEROL 34 mg/dL (29-60); LIPASE 651 U/L (23-300)
[2017-04-05 09:32] LABS: LDL CHOLESTEROL < 30 mg/dL (0-129)
--- NOTE | 2017-04-05 09:47 | PN ---
PROJECT MANAGEMENT PROFESSOR NOTE DATE: 04/05/2017 SUBJECTIVE: The patient is resting in bed and continues to be on insulin drip because he is n.p.o. Patient has no complaints of abdominal pain this morning and no nauseousness or vomiting. No diarrhea. No fever or chills and no shortness of breath. Blood sugars have been ranging between 100 and 200 and the patient's anion gap is close. We will talk with PMD about possible of starting on a diet and changing over to coverage insulin scale and possibly Levemir. PHYSICAL EXAMINATION: VITAL SIGNS: Temperature is 98, pulse is 68, respirations are 20, BP is 128/81, and O2 saturation on room air is 97%. HEENT: Head is atraumatic and normocephalic. Eyes; reactive to light. Ears, nose, and throat seem to be within normal limits. NECK: Supple. No JVD. No thyroid enlargement. No lymph nodes. HEART: Has a regular rate and rhythm. Normal S1 and S2. LUNGS: Reveal good breath sounds bilaterally. ABDOMEN: Soft. Decreased bowel sounds and slight tender to palpation. GENITALIA: Deferred. RECTAL: Deferred. MUSCULOSKELETAL: No joint deformities. EXTREMITIES: Reveal no edema. NEUROLOGICAL: He seemed to be grossly intact. LABORATORY DATA: As far as his laboratories are concerned; his white count is 5.0, hemoglobin is 10.9, hematocrit is 31.2 with platelets of 220,000. Sodium is 138, potassium is 3.8, chloride is 110, CO2 of 22 with a BUN of 8, creatinine of 0.7, and a glucose of 170. IMPRESSION: Patient has a history of diabetes and presented with diabetic ketoacidosis. Has pancreatitis with abdominal pain and a history of hypertension as well as hyperlipidemia. PLAN: We will continue with IV fluids, continue to monitor laboratories closely, and correct as needed. The patient will be changed to insulin coverage and Levemir once PMD agrees and GI feels he can tolerate p.o. intake. Chaim Izquierdo MD
[2017-04-05 12:16] LABS: BLOOD UREA NITROGEN 8 mg/dL (7-21); CALCIUM 8.8 mg/dL (8.4-10.5); GFR AFRICAN-AMERICAN > 60; GFR NON-AFRICAN AMERICAN > 60
--- NOTE | 2017-04-05 12:36 | CP.PCM.PN ---
<Jm Leggett - Last Filed: 04/05/17 13:21> Subjective - Date & Time of Evaluation Date of Evaluation: 04/05/17 Time of Evaluation: 09:05 - Subjective Subjective: Internal Medicine Progress Note for Dr. Jean Baptiste/Dr. Gonzalez service Patient seen and examined at bedside in the ICU. No acute events overnight. Patient reports some nausea and persisting abdominal pain, but both improved over level at presentation. Remains on insulin drip due to elevated triglycerides. Pending abdominal US. Objective - Vital Signs/Intake and Output Vital Signs (last 24 hours): Temp Pulse Resp BP Pulse Ox 99.2 F 70 26 H 110/72 96 04/05/17 08:41 04/05/17 08:40 04/05/17 08:40 04/05/17 08:00 04/05/17 08:42 Intake and Output: 04/05/17 04/05/17 06:59 18:59 Intake Total 65 1236 Output Total 1650 Balance 65 -414 - Medications Medications: Current Medications Famotidine (Pepcid) 20 mg IVP DAILY [facility] Last Admin: 04/05/17 08:59 Dose: 20 mg Insulin Human Regular 100 (units/ Sodium Chloride) 100 mls @ 10 mls/hr IV .Q10H PRN; Protocol; 10 UNITS/HR PRN Reason: TITRATE PER PROTOCOL Last Titration: 04/05/17 09:56 Dose: 2 units/hr, 2 mls/hr Dextrose/Sodium Chloride (Dextrose 5%/0.45% Ns 1000 Ml) 1,000 mls @ 100 mls/hr IV .Q10H [facility] Last Admin: 04/05/17 11:22 Dose: 100 mls/hr Morphine Sulfate (Morphine) 2 mg IVP Q4H PRN PRN Reason: Pain, moderate (4-7) Last Admin: 04/05/17 07:31 Dose: 2 mg Ondansetron HCl (Zofran Inj) 4 mg IVP Q6H PRN PRN Reason: Nausea/Vomiting - Labs Labs: 04/05/17 04:50 04/05/17 08:10 - Constitutional Appears: Non-toxic, No Acute Distress, Chronically Ill - Head Exam Head Exam: ATRAUMATIC, NORMAL INSPECTION, NORMOCEPHALIC - Eye Exam Eye Exam: EOMI, Normal appearance. absent: Conjunctival injection, Scleral icterus Pupil Exam: absent: Irregular, Unequal - ENT Exam ENT Exam: Mucous Membranes Moist - Neck Exam Neck Exam: Full ROM - Respiratory Exam Respiratory Exam: Decreased Breath Sounds (mild diffusely). absent: Accessory Muscle Use, Chest Wall Tenderness - Cardiovascular Exam Cardiovascular Exam: REGULAR RHYTHM, RRR, +S1, +S2. absent: Bradycardia, Tachycardia, Irregular Rhythm, JVD, +S4 - GI/Abdominal Exam GI & Abdominal Exam: Guarding, Soft, Tenderness (mild diffuse tenderness, focal tenderness at epigastric area and RUQ), Diminished Bowel Sounds. absent: Distended, Firm, Rigid, Hyperactive Bowel Sounds, Hypoactive Bowel Sounds, Normal Bowel Sounds - Extremities Exam Extremities Exam: Normal Inspection. absent: Calf Tenderness, Joint Swelling, Pedal Edema, Tenderness - Back Exam Back Exam: absent: CVA tenderness (L), CVA tenderness (R) - Neurological Exam Neurological Exam: Alert, Awake, Oriented x3 - Psychiatric Exam Psychiatric exam: Normal Affect, Normal Mood - Skin Skin Exam: Dry, Intact, Normal Color, Warm Assessment and Plan - Assessment and Plan (Free Text) Assessment: 62 yo AA M with PMH of diabetes mellitus type 2, hypertension, and hyperlipidemia admitted to the ICU with diabetic ketoacidosis as well as acute pancreatitis with triglycerides > 2000. Plan: 1) DKA - resolved -anion gap closed overnight, glucose 150's-200's overnight -now on insulin drip 2u per hr + D5 1/2NS due to hyperTG, will transition to SC insulin after resolution of hyperTG -continue fingersticks q1h -A1C Pending -Continue with D5 1/2NS with potassium repletion given that K presently under 4.5 -Remains NPO due to hyperTG -Stressed importance of follow-up with Endo after discharge 2) Acute Pancreatitis -2/2 DKA vs hyperTG -CT abdomen/pelvis reviewed; revealed enlargement of pancreas with edema and loss of normal fatty lobulation. Findings consistent with acute pancreatitis -Lipase 4438 on admission, 651 today -Patient denies ETOH use; triglycerides 2238 and likely the source of his pancreatitis; 1601 today -GI consulted - Dr. Glaser; continue strict NPO and maintain insulin drip, increase fluids, monitor I's & O's 3) HTN -holding home antihypertensives, SBP 100-130, continue IVFs -of persistently SBP > 140s, can consider adding ACEi/ARB 4) HLD -elevated TG at 1601, Chol > 500 -continue NPO, insulin drip, will transition to diet and anti-TG oral medication when TG < 500 Dispo: ICU, remains on insulin drip, pending improvement of TG, pending abd US FEN: NPO, D5 1/2NS at 100cc/hr Access: Peripheral IV Consults: ICU, GI Ppx: Pepcid for GI, SCDs for DVT Patient seen, reviewed, and discussed with attending, Dr. Gonzalez. <Rocky Gonzalez - Last Filed: 04/06/17 17:23> Objective - Vital Signs/Intake and Output Vital Signs (last 24 hours): Temp Pulse Resp BP Pulse Ox 99.2 F 67 13 122/66 98 04/05/17 20:00 04/06/17 16:00 04/06/17 16:00 04/06/17 15:00 04/06/17 16:00 Intake and Output: 04/06/17 04/06/17 06:59 18:59 Intake Total 1106.5 5 Output Total 1200 Balance -93.5 5 - Medications Medications: Current Medications Famotidine (Pepcid) 20 mg IVP DAILY [facility] Last Admin: 04/06/17 10:01 Dose: 20 mg Gemfibrozil (Lopid) 600 mg PO BID [facility] Last Admin: 04/06/17 17:18 Dose: 600 mg Insulin Human Regular 100 (units/ Sodium Chloride) 100 mls @ 10 mls/hr IV .Q10H PRN; Protocol; 10 UNITS/HR PRN Reason: TITRATE PER PROTOCOL Last Titration: 04/06/17 14:31 Dose: 3 units/hr, 3 mls/hr Dextrose/Sodium Chloride (Dextrose 5%/0.45% Ns 1000 Ml) 1,000 mls @ 200 mls/hr IV .Q5H [facility] Last Admin: 04/06/17 14:30 Dose: 200 mls/hr Potassium Chloride (Potassium Chloride 10 Meq/100 Ml) 10 meq in 100 mls @ 100 mls/hr IVPB Q2H [facility] Stop: 04/06/17 19:14 Last Admin: 04/06/17 17:06 Dose: 100 mls/hr Morphine Sulfate (Morphine) 2 mg IVP Q4H PRN PRN Reason: Pain, moderate (4-7) Last Admin: 04/05/17 20:28 Dose: 2 mg Ondansetron HCl (Zofran Inj) 4 mg IVP Q6H PRN PRN Reason: Nausea/Vomiting Simethicone (Mylicon Chew Tab) 80 mg PO BID PRN PRN Reason: GI distress - Labs Labs: 04/06/17 05:35 04/06/17 05:35 Attending/Attestation - Attestation I have personally seen and examined this patient.: Yes I have fully participated in the care of the patient.: Yes I have reviewed all pertinent clinical information, including history, physical exam and plan: Yes Notes (Text): 04/06/17 17:23 Medical record note made by the resident after discussion with my direction and input after the patient was personally seen and examined by me. I have reviewed the chart and agree that the record accurately reflects by personal performance of the history, physical exam, data review, and medical decision-making, in the course for the patient. I have also personally directed the plan of care.
--- NOTE | 2017-04-05 15:18 | US ---
HISTORY: r/o gallstones COMPARISON: None. TECHNIQUE: Sonographic evaluation of the abdomen. FINDINGS: LIVER: Measures 15.1 cm. Diffusely increased echogenicity of the liver parenchyma. Consistent with fatty infiltration. No mass. No intrahepatic biliary dilatation. Smooth contour. Normal hepatopetal portal venous flow demonstrated. GALLBLADDER: Unremarkable. No gallstones. COMMON BILE DUCT: Measures 5 mm. No stones. No dilatation. PANCREAS: No pancreatic mass. There is trace peripancreatic fluid identified consistent with findings on CT examination of 04/03/2017. RIGHT KIDNEY: Measures 12.2cm. Normal echogenicity. No calculus, mass, or hydronephrosis. LEFT KIDNEY: Measures 11.7cm. Normal echogenicity. No calculus, mass, or hydronephrosis. SPLEEN: Normal in size and contour. No mass. AORTA: Not well visualized IVC: Not well visualized OTHER FINDINGS: None. IMPRESSION: Fatty infiltration of the liver. Trace peripancreatic fluid consistent with findings on CT examination of 04/03/2017. No additional abnormality.
[2017-04-05 16:26] LABS: BLOOD UREA NITROGEN 7 mg/dL (7-21); CALCIUM 8.6 mg/dL (8.4-10.5); GFR AFRICAN-AMERICAN > 60; GFR NON-AFRICAN AMERICAN > 60
--- NOTE | 2017-04-05 22:21 | CP.PCM.PN ---
Subjective - Date & Time of Evaluation Date of Evaluation: 04/05/17 Time of Evaluation: 11:00 - Subjective Subjective: patient's pain by mouth feels better significant improvement of abdominal pain Objective - Vital Signs/Intake and Output Vital Signs (last 24 hours): Temp Pulse Resp BP Pulse Ox 98.7 F 72 19 119/68 98 04/05/17 12:22 04/05/17 18:20 04/05/17 18:20 04/05/17 18:00 04/05/17 18:20 Intake and Output: 04/05/17 04/06/17 18:59 06:59 Intake Total 2453.0 1.5 Output Total 3050 Balance -597.0 1.5 - Medications Medications: Current Medications Famotidine (Pepcid) 20 mg IVP DAILY [facility] Last Admin: 04/05/17 08:59 Dose: 20 mg Insulin Human Regular 100 (units/ Sodium Chloride) 100 mls @ 10 mls/hr IV .Q10H PRN; Protocol; 10 UNITS/HR PRN Reason: TITRATE PER PROTOCOL Last Titration: 04/05/17 20:17 Dose: 1.5 units/hr, 1.5 mls/hr Dextrose/Sodium Chloride (Dextrose 5%/0.45% Ns 1000 Ml) 1,000 mls @ 100 mls/hr IV .Q10H [facility] Last Admin: 04/05/17 20:22 Dose: 100 mls/hr Morphine Sulfate (Morphine) 2 mg IVP Q4H PRN PRN Reason: Pain, moderate (4-7) Last Admin: 04/05/17 20:28 Dose: 2 mg Ondansetron HCl (Zofran Inj) 4 mg IVP Q6H PRN PRN Reason: Nausea/Vomiting - Labs Labs: 04/05/17 04:50 04/05/17 16:00 - Constitutional Appears: Non-toxic, No Acute Distress - Head Exam Head Exam: ATRAUMATIC, NORMAL INSPECTION, NORMOCEPHALIC - Eye Exam Eye Exam: EOMI, PERRL - ENT Exam ENT Exam: Mucous Membranes Moist, Normal Exam - Neck Exam Neck Exam: Full ROM. absent: Lymphadenopathy - Respiratory Exam Respiratory Exam: Clear to Ausculation Bilateral, NORMAL BREATHING PATTERN. absent: Rales, Rhonchi - Cardiovascular Exam Cardiovascular Exam: REGULAR RHYTHM, +S1, +S2. absent: JVD - GI/Abdominal Exam GI & Abdominal Exam: Soft, Tenderness. absent: Mass Additional comments: mild tenderness present in the epigastric area significant improvement compared to yesterday - Exam External exam: absent: NORMAL EXTERNAL EXAM - Extremities Exam Extremities Exam: absent: Pedal Edema, Tenderness - Neurological Exam Neurological Exam: Alert, Awake, Oriented x3 - Psychiatric Exam Psychiatric exam: Normal Affect Assessment and Plan - Assessment and Plan (Free Text) Assessment: 1. Acute pancreatitis recent sonogram reviewed no gallstones and CBD normal. Denies any all call use the likelihood of acute pancreatitis etiology should include dyslipidemia improving. 2. Dyslipidemia significantly elevated triglycerides over 1600 3. Status post DKA. 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 Slowly advance the diet 2. Follow-up with triglycerides. Reasonable to get baseline crit was available for this patient would need aggressive management if this is the etiology for acute pancreatitis 3. Status post DKA diabetes mellitus the continue the present management. Would precautions and once in the diet as the CT grade of the pancreatitis is grade C
[2017-04-06 07:02] LABS: BASO # 0.01 K/mm3 (0.0-2.0); BASO % 0.2 % (0.0-3.0); EOS # 0.1 (0.0-0.7); EOS % 2.3 % (1.5-5.0); GRAN # 3.24 (1.4-6.5); GRAN % 73.4 % (50.0-68.0); HEMOGLOBIN 11.1 gm/dL (14.0-18.0); LYMPH # 0.8 (1.2-3.4); LYMPH % 17.5 % (22.0-35.0); MEAN CORPUSCULAR HGB CONC 33.3 g/dl (31.0-37.0); MEAN PLATELET VOLUME 9.5 fl (7.0-11.0); MONO # 0.3 (0.1-0.6); MONO % 6.6 % (1.0-6.0); PLATELET COUNT 231 10^3/uL (120.0-450.0); RBC 4.27 10^6/uL (3.5-6.1); RED CELL DISTRIBUTION WIDTH 17.2 % (11.5-14.5); WHITE BLOOD COUNT 4.4 10^3/ul (4.5-11.0)
[2017-04-06] MEDS: Dextrose 5%/0.45% NS 1,000 ML IV SCH ×3 (07:31→20:00)
[2017-04-06 09:00] LABS: VENOUS BLOOD GAS BASE EXCESS 0.2 mmol/L (0.0-2.0); VENOUS BLOOD GAS PO2 76 mm/Hg (30-55); VENOUS BLOOD PH 7.36 (7.32-7.43)
[2017-04-06 09:42] LABS: BLOOD UREA NITROGEN 8 mg/dL (7-21); CALCIUM 9.1 mg/dL (8.4-10.5); GFR AFRICAN-AMERICAN > 60; GFR NON-AFRICAN AMERICAN > 60
--- NOTE | 2017-04-06 10:04 | CP.PCM.PN ---
<Bambi Zelaya - Last Filed: 04/06/17 13:39> Subjective - Date & Time of Evaluation Date of Evaluation: 04/06/17 Time of Evaluation: 08:50 - Subjective Subjective: S&E at bedside, chart reviewed, no acute overnight events. Patient denies SOB, chest pain. Abdominal pain is better, 3/10, feel like its sore. NPO right now. No acute distress. Objective - Vital Signs/Intake and Output Vital Signs (last 24 hours): Temp Pulse Resp BP Pulse Ox 99.2 F 88 17 112/61 97 04/05/17 20:00 04/06/17 08:00 04/06/17 05:10 04/06/17 05:00 04/06/17 05:10 Intake and Output: 04/06/17 04/06/17 06:59 18:59 Intake Total 1106.5 Output Total 1200 Balance -93.5 - Medications Medications: Current Medications Famotidine (Pepcid) 20 mg IVP DAILY [facility] Last Admin: 04/05/17 08:59 Dose: 20 mg Gemfibrozil (Lopid) 600 mg PO BID [facility] Insulin Human Regular 100 (units/ Sodium Chloride) 100 mls @ 10 mls/hr IV .Q10H PRN; Protocol; 10 UNITS/HR PRN Reason: TITRATE PER PROTOCOL Last Titration: 04/06/17 06:45 Dose: 1.5 units/hr, 1.5 mls/hr Dextrose/Sodium Chloride (Dextrose 5%/0.45% Ns 1000 Ml) 1,000 mls @ 200 mls/hr IV .Q5H [facility] Morphine Sulfate (Morphine) 2 mg IVP Q4H PRN PRN Reason: Pain, moderate (4-7) Last Admin: 04/05/17 20:28 Dose: 2 mg Ondansetron HCl (Zofran Inj) 4 mg IVP Q6H PRN PRN Reason: Nausea/Vomiting - Labs Labs: 04/06/17 05:35 04/06/17 05:35 - Constitutional Appears: No Acute Distress - Head Exam Head Exam: NORMAL INSPECTION - Eye Exam Eye Exam: Normal appearance. absent: Scleral icterus - ENT Exam ENT Exam: Mucous Membranes Moist - Neck Exam Neck Exam: Normal Inspection - Respiratory Exam Respiratory Exam: Decreased Breath Sounds, NORMAL BREATHING PATTERN. absent: Rales, Wheezes, Respiratory Distress - Cardiovascular Exam Cardiovascular Exam: +S1, +S2 - GI/Abdominal Exam GI & Abdominal Exam: Soft, Tenderness (mild mid abdominal tenderness), Normal Bowel Sounds. absent: Distended, Guarding, Rebound - Extremities Exam Extremities Exam: Normal Capillary Refill. absent: Calf Tenderness, Pedal Edema - Neurological Exam Neurological Exam: Alert, Awake, Oriented x3 - Skin Skin Exam: Dry, Warm Assessment and Plan - Assessment and Plan (Free Text) Assessment: Assessment: Acute pancreatitis, recent sonogram reviewed no gallstones and CBD normal. Denies any alcohol use likelihood of acute pancreatitis cause should may include dyslipidemia, that is improving. Dyslipidemia significantly elevated triglycerides over 1600 Status post DKA. 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 Glaser. Addendum: spoke to Dr. Goldstein, will hold clears, triglycerides still elevated , lipase improving, but still elevated, keep npo today, continue IVF reevaluated tomorrow. <Angela Glaser V - Last Filed: 04/06/17 23:51> Objective - Vital Signs/Intake and Output Vital Signs (last 24 hours): Temp Pulse Resp BP Pulse Ox 98.5 F 64 15 135/64 96 04/06/17 20:00 04/06/17 22:20 04/06/17 22:20 04/06/17 22:00 04/06/17 22:20 Intake and Output: 04/06/17 04/07/17 18:59 06:59 Intake Total 7 4 Balance 7 4 - Medications Medications: Current Medications Famotidine (Pepcid) 20 mg IVP DAILY [facility] Last Admin: 04/06/17 10:01 Dose: 20 mg Gemfibrozil (Lopid) 600 mg PO BID [facility] Last Admin: 04/06/17 17:18 Dose: 600 mg Insulin Human Regular 100 (units/ Sodium Chloride) 100 mls @ 10 mls/hr IV .Q10H PRN; Protocol; 10 UNITS/HR PRN Reason: TITRATE PER PROTOCOL Last Titration: 04/06/17 22:20 Dose: 2 units/hr, 2 mls/hr Dextrose/Sodium Chloride (Dextrose 5%/0.45% Ns 1000 Ml) 1,000 mls @ 200 mls/hr IV .Q5H [facility] Last Admin: 04/06/17 20:00 Dose: 200 mls/hr Morphine Sulfate (Morphine) 2 mg IVP Q4H PRN PRN Reason: Pain, moderate (4-7) Last Admin: 04/05/17 20:28 Dose: 2 mg Ondansetron HCl (Zofran Inj) 4 mg IVP Q6H PRN PRN Reason: Nausea/Vomiting Simethicone (Mylicon Chew Tab) 80 mg PO BID PRN PRN Reason: GI distress - Labs Labs: 04/06/17 05:35 04/06/17 05:35 Attending/Attestation - Attestation I have personally seen and examined this patient.: Yes I have fully participated in the care of the patient.: Yes I have reviewed all pertinent clinical information, including history, physical exam and plan: Yes Notes (Text): jessica
[2017-04-06] MEDS ORDERED: Simethicone 80 mg Chewtab PO PRN (11:30)
--- NOTE | 2017-04-06 11:53 | CP.PCM.PN ---
<RADHA TRAN - Last Filed: 04/06/17 13:46> Subjective - Date & Time of Evaluation Date of Evaluation: 04/06/17 Time of Evaluation: 11:48 - Subjective Subjective: ICU PGY1 Progress Note: Pt seen and examined at bedside. No acute events overnight. Denies sob, cp, cough, f/c/n/v/d, abdominal pain. Pt states that he is hungry. Objective - Vital Signs/Intake and Output Vital Signs (last 24 hours): Temp Pulse Resp BP Pulse Ox 99.2 F 88 17 112/61 97 04/05/17 20:00 04/06/17 08:00 04/06/17 05:10 04/06/17 05:00 04/06/17 05:10 Intake and Output: 04/06/17 04/06/17 06:59 18:59 Intake Total 1106.5 2 Output Total 1200 Balance -93.5 2 - Medications Medications: Current Medications Famotidine (Pepcid) 20 mg IVP DAILY [facility] Last Admin: 04/06/17 10:01 Dose: 20 mg Gemfibrozil (Lopid) 600 mg PO BID [facility] Last Admin: 04/06/17 10:01 Dose: 600 mg Insulin Human Regular 100 (units/ Sodium Chloride) 100 mls @ 10 mls/hr IV .Q10H PRN; Protocol; 10 UNITS/HR PRN Reason: TITRATE PER PROTOCOL Last Titration: 04/06/17 11:02 Dose: 2 units/hr, 2 mls/hr Dextrose/Sodium Chloride (Dextrose 5%/0.45% Ns 1000 Ml) 1,000 mls @ 200 mls/hr IV .Q5H [facility] Morphine Sulfate (Morphine) 2 mg IVP Q4H PRN PRN Reason: Pain, moderate (4-7) Last Admin: 04/05/17 20:28 Dose: 2 mg Ondansetron HCl (Zofran Inj) 4 mg IVP Q6H PRN PRN Reason: Nausea/Vomiting Simethicone (Mylicon Chew Tab) 80 mg PO BID PRN PRN Reason: GI distress - Labs Labs: 04/06/17 05:35 04/06/17 05:35 - Constitutional Appears: No Acute Distress - Head Exam Head Exam: ATRAUMATIC, NORMOCEPHALIC - Eye Exam Eye Exam: PERRL - ENT Exam ENT Exam: Mucous Membranes Moist - Respiratory Exam Respiratory Exam: Clear to Ausculation Bilateral - Cardiovascular Exam Cardiovascular Exam: RRR, +S1, +S2. absent: Gallop, Rubs, Murmur - GI/Abdominal Exam GI & Abdominal Exam: Soft, Normal Bowel Sounds Additional comments: rounded abdomen, obese male, mild TTP in epigastric region. - Extremities Exam Extremities Exam: absent: Calf Tenderness, Pedal Edema - Neurological Exam Neurological Exam: Alert, Awake, Oriented x3 - Psychiatric Exam Psychiatric exam: Normal Mood - Skin Skin Exam: Dry, Intact, Warm Assessment and Plan - Assessment and Plan (Free Text) Assessment: 62M with PMH of noncompliant DM2, HTN and HLD, admitted to ICU for acute pancreatitis 2/2 severe hypertriglyceridemia, complicated by DKA and agap metabolic acidosis. Pt's DKA has resolved, BS 160-180's, agap closed, on D51/2 NS @ 200/h. On admission, TG 2283, trended down to 1098 today, on insulin drip for hypertriglyceredemia, refused TPE, will await till TG<500, will switch to SQ insulin then. Plan: Neuro : AAOx3 today. No change in mental status. Cont to monitor. CV : BP 101-148/47-71, HR 63-70, NSR. Hx of HTN, noncompliant. Will cont to monitor. Maintain MAP>65. Hemodynamically stable. Pulm: On RA. Saturating well. Maintain O2 sat>90% GI: Acute pancreatitis 2/2 severe hypertriglyceridemia TG 2238->1601->1098 today. C/w insulin drip and D51/2 NS @200/h, BS 160-180' s. will maintain euglycemia. Cont with Lopid Pt refused plasmapheresis, which is the preferred treatment. Continue with Protonix. Renal : BUN/Cr 8/0.7. Replace lytes, maintain euvolemia. Continue to monitor. ID: Afebrile, no leukocytosis. Continue to monitor. Endo: s/p DKA, agap closed yesterday. BS 160-180's. On insulin drip for severe hypertriglyceridemia tx. Cont with D51/2NS @200/h. Continue with ISS. Maintain euglycemia. Heme: Hgb 11.1. Plts 231. Stable. Cont to monitor. GI ppx - Protonix Discussed and seen with attending, Dr. Goldstein. Radha Tran, PGY1 <Ramesh Goldstein - Last Filed: 04/06/17 19:46> Objective - Vital Signs/Intake and Output Vital Signs (last 24 hours): Temp Pulse Resp BP Pulse Ox 99.2 F 68 15 139/75 97 04/05/17 20:00 04/06/17 18:20 04/06/17 18:20 04/06/17 18:00 04/06/17 18:20 Intake and Output: 04/06/17 04/07/17 18:59 06:59 Intake Total 7 Balance 7 - Medications Medications: Current Medications Famotidine (Pepcid) 20 mg IVP DAILY [facility] Last Admin: 04/06/17 10:01 Dose: 20 mg Gemfibrozil (Lopid) 600 mg PO BID [facility] Last Admin: 04/06/17 17:18 Dose: 600 mg Insulin Human Regular 100 (units/ Sodium Chloride) 100 mls @ 10 mls/hr IV .Q10H PRN; Protocol; 10 UNITS/HR PRN Reason: TITRATE PER PROTOCOL Last Titration: 04/06/17 18:31 Dose: 2 units/hr, 2 mls/hr Dextrose/Sodium Chloride (Dextrose 5%/0.45% Ns 1000 Ml) 1,000 mls @ 200 mls/hr IV .Q5H [facility] Last Admin: 04/06/17 14:30 Dose: 200 mls/hr Morphine Sulfate (Morphine) 2 mg IVP Q4H PRN PRN Reason: Pain, moderate (4-7) Last Admin: 04/05/17 20:28 Dose: 2 mg Ondansetron HCl (Zofran Inj) 4 mg IVP Q6H PRN PRN Reason: Nausea/Vomiting Simethicone (Mylicon Chew Tab) 80 mg PO BID PRN PRN Reason: GI distress - Labs Labs: 04/06/17 05:35 04/06/17 05:35 Attending/Attestation - Attestation I have personally seen and examined this patient.: Yes I have fully participated in the care of the patient.: Yes I have reviewed all pertinent clinical information, including history, physical exam and plan: Yes Notes (Text): 04/06/17 19:[address] Goldstein note
--- NOTE | 2017-04-06 14:52 | PN ---
DATE: 04/06/2017 SUBJECTIVE: The patient is seen and examined at bedside. He is comfortable. He reports subjectively doing much better. The patient is not in pain or any other distress. He is comfortable. PHYSICAL EXAMINATION VITAL SIGNS: Blood pressure 112/61, respiratory rate 17, heart rate 77, and oxygen saturation 97% on room air. HEAD/NECK: Atraumatic. LUNGS: Clear to auscultation bilaterally. HEART: Regular rate and rhythm. S1 and S2 normal. ABDOMEN: Soft, nontender, and nondistended. MUSCULOSKELETAL: No C/C/E. NEUROLOGIC: The patient moves all extremities spontaneously. SKIN: Moist. PSYCHIATRIC: The patient is alert and oriented x3. LABORATORY DATA: Sodium 138, potassium 3.5, chloride 109, carbon dioxide 22, BUN 7, creatinine 0.6, glucose 169, calcium 8.6. WBC 4.4, hemoglobin 11.1, and platelet count 231. Blood gas as of 3 days ago showed lactic acid 1.9 and pH 7.3. ABG will be repeated today as well. MEDICATIONS: D5 half normal saline at 100 mL per hour, Pepcid daily, regular insulin drip, morphine p.r.n., and Zofran p.r.n. ASSESSMENT AND PLAN: This is a 62-year-old gentleman who presented with acute pancreatitis secondary to severe hypertriglyceridemia complicated by diabetic ketoacidosis. The patient was started on insulin drip with subsequent resolution of anion gap. The patient continued insulin drip for hypertriglyceridemia. Dr. Kingsley (Hematology consult) was placed to consider plasmapheresis. Endocrine consult with Dr. Malloy was also placed and pending. Addendum: I discussed plasmapheresis with the patient and the patient refused plasmapheresis, thus we will continue with insulin drip and serial triglyceride level checks. I will repeat ABG with lactic acid to ascertain resolution of lactic acidosis as well. The patient is subjectively doing better. The patient is hemodynamically and respiratory-dunham stable. We will continue to target euvolemia, euglycemia and normothermia. I will increase his IV fluids to 200 mL per hour at the present time. I will proceed with abdominal ultrasound to rule out choledocholithiasis and CBD dilatation. GI consult is pending. ccm time 40 min Ramesh Goldstein MD AN
--- NOTE | 2017-04-06 18:00 | CP.PCM.PN ---
<RIGO RIVAS - Last Filed: 04/06/17 17:56> Subjective - Date & Time of Evaluation Date of Evaluation: 04/06/17 Time of Evaluation: 06:45 - Subjective Subjective: Rigo Rivas DO PGY1 - Internal Medicine Progress Note - Markel/Lisa Service Patient seen and examined at bedside in the ICU. No acute events overnight. Patient no longer having abdominal pain or nausea. Remains on insulin drip due to elevated triglycerides. Denies CP, SOB, palpitations, MONREAL, focal weakness or numbness. Objective - Vital Signs/Intake and Output Vital Signs (last 24 hours): Temp Pulse Resp BP Pulse Ox 99.2 F 85 16 120/72 95 04/05/17 20:00 04/06/17 17:20 04/06/17 17:10 04/06/17 17:00 04/06/17 17:20 Intake and Output: 04/06/17 04/06/17 06:59 18:59 Intake Total 1106.5 5 Output Total 1200 Balance -93.5 5 - Medications Medications: Current Medications Famotidine (Pepcid) 20 mg IVP DAILY [facility] Last Admin: 04/06/17 10:01 Dose: 20 mg Gemfibrozil (Lopid) 600 mg PO BID [facility] Last Admin: 04/06/17 17:18 Dose: 600 mg Insulin Human Regular 100 (units/ Sodium Chloride) 100 mls @ 10 mls/hr IV .Q10H PRN; Protocol; 10 UNITS/HR PRN Reason: TITRATE PER PROTOCOL Last Titration: 04/06/17 14:31 Dose: 3 units/hr, 3 mls/hr Dextrose/Sodium Chloride (Dextrose 5%/0.45% Ns 1000 Ml) 1,000 mls @ 200 mls/hr IV .Q5H [facility] Last Admin: 04/06/17 14:30 Dose: 200 mls/hr Potassium Chloride (Potassium Chloride 10 Meq/100 Ml) 10 meq in 100 mls @ 100 mls/hr IVPB Q2H [facility] Stop: 04/06/17 19:14 Last Admin: 04/06/17 17:06 Dose: 100 mls/hr Morphine Sulfate (Morphine) 2 mg IVP Q4H PRN PRN Reason: Pain, moderate (4-7) Last Admin: 04/05/17 20:28 Dose: 2 mg Ondansetron HCl (Zofran Inj) 4 mg IVP Q6H PRN PRN Reason: Nausea/Vomiting Simethicone (Mylicon Chew Tab) 80 mg PO BID PRN PRN Reason: GI distress - Labs Labs: 04/06/17 05:35 04/06/17 05:35 - Constitutional Appears: Non-toxic, No Acute Distress - Head Exam Head Exam: ATRAUMATIC, NORMOCEPHALIC - Eye Exam Eye Exam: EOMI, Normal appearance - ENT Exam ENT Exam: Mucous Membranes Moist - Neck Exam Neck Exam: absent: Lymphadenopathy, Meningismus, Thyromegaly - Respiratory Exam Respiratory Exam: Clear to Ausculation Bilateral. absent: Rales, Rhonchi, Wheezes - Cardiovascular Exam Cardiovascular Exam: RRR, +S1, +S2 - GI/Abdominal Exam GI & Abdominal Exam: Soft, Tenderness (mild, diffuse), Diminished Bowel Sounds. absent: Distended, Firm, Rigid - Extremities Exam Extremities Exam: Normal Inspection. absent: Calf Tenderness, Pedal Edema - Back Exam Back Exam: absent: CVA tenderness (L), CVA tenderness (R) - Neurological Exam Neurological Exam: Alert, Awake, Oriented x3 - Psychiatric Exam Psychiatric exam: Normal Affect, Normal Mood - Skin Skin Exam: Dry, Intact Assessment and Plan - Assessment and Plan (Free Text) Assessment: 62 yo AA M with PMH of diabetes mellitus type 2, hypertension, and hyperlipidemia admitted to the ICU with diabetic ketoacidosis as well as acute pancreatitis with triglycerides > 2000. Plan: 1) DKA - resolved - Anion gap closed, glucose 160's-180's - Now on insulin drip 2u per hr + D5 1/2NS due to hyperTG, will transition to SC insulin after resolution of hyperTG - Continue fingersticks q1h - A1C 14.1 - Continue with D5 1/2NS with potassium repletion given that K presently under 4.5 - Remains NPO due to hyperTG - Stressed importance of follow-up with Endo and medication compliance after discharge 2) Acute Pancreatitis - 2/2 DKA vs hyperTG - CT abdomen/pelvis reviewed; revealed enlargement of pancreas with edema and loss of normal fatty lobulation. Findings consistent with acute pancreatitis - Lipase 4438 on admission, 586 today - Patient denies ETOH use; triglycerides 2238 and likely the source of his pancreatitis; 1098 today - GI consulted - Dr. Glaser; continue strict NPO and maintain insulin drip, increase fluids, monitor I's & O's 3) HTN - Holding home antihypertensives, SBP 100-130, continue IVFs 4) HLD - Elevated TG at 1098, Chol > 500 - Continue NPO, insulin drip, will transition to diet and anti-TG oral medication when TG < 500 Ppx: Pepcid for GI, SCDs for DVT Patient seen, reviewed, and discussed with senior resident and attending, Dr. Gonzalez. <Rocky Gonzalez - Last Filed: 04/10/17 19:25> Objective - Vital Signs/Intake and Output Vital Signs (last 24 hours): Temp Pulse Resp BP Pulse Ox 98.6 F 68 18 124/68 98 04/09/17 07:30 04/09/17 07:30 04/09/17 07:30 04/09/17 07:30 04/09/17 07:30 - Labs Labs: 04/09/17 07:30 04/09/17 07:30 Attending/Attestation - Attestation I have personally seen and examined this patient.: Yes I have fully participated in the care of the patient.: Yes I have reviewed all pertinent clinical information, including history, physical exam and plan: Yes Notes (Text): 04/10/17 19:25 Medical record note made by the resident after discussion with my direction and input after the patient was personally seen and examined by me. I have reviewed the chart and agree that the record accurately reflects by personal performance of the history, physical exam, data review, and medical decision-making, in the course for the patient. I have also personally directed the plan of care.
[2017-04-07] MEDS: Dextrose 5%/0.45% NS 1,000 ML IV SCH ×4 (01:00→21:29)
--- NOTE | 2017-04-07 04:30 | CON ---
ENDOCRINOLOGY CONSULTATION DATE: 04/06/2017 LOCATION: [facility]U 128, room 2. HISTORY OF PRESENT ILLNESS: This is a 62-year-old male presenting here with diffuse abdominal pain and supervening intractable nausea and vomiting and has been evaluated to be in congestive heart failure and is being referred also for endocrine evaluation because of marked dyslipidemia as noted. He has been evaluated to acute pancreatitis and currently n.p.o. at this time. PAST MEDICAL HISTORY: Essentially unremarkable. No known medical conditions. FAMILY HISTORY: Positive for hypertension and diabetes. SOCIAL HISTORY: The patient denies any substance use. Has a very supportive family otherwise. REVIEW OF SYSTEMS: As mentioned above admits to easy fatigability and tiredness and suboptimal energy level. Admits to episodic bouts of dizziness and lightheadedness worse on the day of admission. No chest pain or palpitations or PND. His oral intake has been variable with recent onset of nausea, dyspepsia and diffuse upper abdominal pain with supervening intractable vomiting episodes presenting to the ER for further workup and management. No recent alterations of bowel and urinary patterns. PHYSICAL EXAMINATION: GENERAL: This is an overweight male in no apparent distress. VITAL SIGNS: Blood pressure 150/90, pulse of 70 beats per minute regular, temperature is 98 and respirations 20. HEENT: Head normocephalic. Eyes anicteric with pink conjunctivae. Funduscopy not possible at this time. He has sore throat otherwise normal. NECK: Supple. Thyroid gland is normal in size. No carotid bruits or cervical adenopathy. CARDIOPULMONARY: Adynamic precordium. S1 and S2 is rapid and regular. LUNGS: Clear to auscultation. ABDOMEN: Flat and soft with positive bowel sounds. EXTREMITIES: No peripheral edema. Pulses are +2 pulses bilaterally. LABORATORY DATA: Chemistry showed initially BUN of 10, sodium 140, potassium 4.0, chloride is 110, CO2 is 14, glucose is 201, and creatinine is 0.7. His hemoglobin A1c is 14.1% clearly indicative overt type 2 diabetes, which has been untreated at this time. His subsequent glucose level was 423 mg/dL and the lipase level was 4438 and subsequent level today is 586. As noted, triglycerides were 2283, 2283 and subsequent level is 1098. Cholesterol is 314. ASSESSMENT: This is a 62-year-old male with overt acute pancreatitis noted historically, clinically and by chemically with concomitant marked dyslipidemia, specifically hypertriglyceridemia and associated hypercholesterolemia at this time. This also overt uncontrolled type 2 insulin requiring diabetes with marked hyperglycemic accelerations confirmed by markedly elevated A1c level of 14% indicative of already the presence of suboptimal metabolic control with diabetic condition even prior to this admission and even prior due to the apparent pancreatitis. PLAN OF MANAGEMENT: Will concur with the vigorous IV hydration as ordered and we will obtain serum chemistries and supplement accordingly as needed. We will also concur with continuous insulin drip initiation to enhance the lipoprotein lipase activity level and to help reduce the triglycerides and cholesterol levels as noted. We will obtain a lipoprotein fractionation with a lipoprotein phenotype to confirm presence of underlying familial combined pancreatitis. We will obtain serum chemistries and supplement accordingly as needed. We will also continue insulin drip infusion and if we stop, we will give him a basal and bolus insulin regimen as indicated. We will follow with you. Kristina Malloy MD
[2017-04-07 06:48] LABS: BASO # 0.02 K/mm3 (0.0-2.0); BASO % 0.4 % (0.0-3.0); EOS # 0.1 (0.0-0.7); EOS % 2.3 % (1.5-5.0); GRAN # 3.37 (1.4-6.5); GRAN % 71.8 % (50.0-68.0); HEMOGLOBIN 10.8 gm/dL (14.0-18.0); LYMPH # 0.8 (1.2-3.4); LYMPH % 16.4 % (22.0-35.0); MEAN CELL VOLUME 79.1 fL (80.0-105.0); MEAN CORPUSCULAR HEMOGLOBIN 25.9 pg (25.0-35.0); MEAN CORPUSCULAR HGB CONC 32.7 g/dl (31.0-37.0); MEAN PLATELET VOLUME 9.3 fl (7.0-11.0); MONO # 0.4 (0.1-0.6); MONO % 9.1 % (1.0-6.0); PLATELET COUNT 237 10^3/uL (120.0-450.0); RBC 4.17 10^6/uL (3.5-6.1); RED CELL DISTRIBUTION WIDTH 17.2 % (11.5-14.5); WHITE BLOOD COUNT 4.7 10^3/ul (4.5-11.0)
[2017-04-07 07:03] LABS: BLOOD UREA NITROGEN 7 mg/dL (7-21); CALCIUM 8.8 mg/dL (8.4-10.5); GFR AFRICAN-AMERICAN > 60; GFR NON-AFRICAN AMERICAN > 60
[2017-04-07] MEDS ORDERED: Potassium Chloride 20 mEq/15 ml LIQ UD PO STA (08:01)
--- NOTE | 2017-04-07 09:18 | CP.PCM.PN ---
<Bambi Zelaya - Last Filed: 04/07/17 09:18> Subjective - Date & Time of Evaluation Date of Evaluation: 04/07/17 Time of Evaluation: 08:20 - Subjective Subjective: S&E at bedside, chart reviewed. NO acute overnight events. He denies abdominal pain, (+) flatus, no BM, he still NPO, no N/V, Sob or chest pain or overt GI bleed. Objective - Vital Signs/Intake and Output Vital Signs (last 24 hours): Temp Pulse Resp BP Pulse Ox 98.5 F 69 13 119/48 L 99 04/06/17 20:00 04/07/17 08:02 04/07/17 07:20 04/07/17 07:00 04/07/17 07:20 Intake and Output: 04/07/17 04/07/17 06:59 18:59 Intake Total 4432 56.5 Output Total 4800 Balance -368 56.5 - Medications Medications: Current Medications Famotidine (Pepcid) 20 mg IVP DAILY [facility] Last Admin: 04/06/17 10:01 Dose: 20 mg Gemfibrozil (Lopid) 600 mg PO BID [facility] Last Admin: 04/06/17 17:18 Dose: 600 mg Insulin Human Regular 100 (units/ Sodium Chloride) 100 mls @ 10 mls/hr IV .Q10H PRN; Protocol; 10 UNITS/HR PRN Reason: TITRATE PER PROTOCOL Last Admin: 04/07/17 07:20 Dose: 2 units/hr, 2 mls/hr Dextrose/Sodium Chloride (Dextrose 5%/0.45% Ns 1000 Ml) 1,000 mls @ 200 mls/hr IV .Q5H [facility] Last Admin: 04/07/17 01:00 Dose: 200 mls/hr Morphine Sulfate (Morphine) 2 mg IVP Q4H PRN PRN Reason: Pain, moderate (4-7) Last Admin: 04/05/17 20:28 Dose: 2 mg Ondansetron HCl (Zofran Inj) 4 mg IVP Q6H PRN PRN Reason: Nausea/Vomiting Simethicone (Mylicon Chew Tab) 80 mg PO BID PRN PRN Reason: GI distress - Labs Labs: 04/07/17 06:10 04/07/17 06:10 - Constitutional Appears: No Acute Distress - Head Exam Head Exam: NORMAL INSPECTION - Eye Exam Eye Exam: Normal appearance. absent: Scleral icterus - ENT Exam ENT Exam: Mucous Membranes Moist - Neck Exam Neck Exam: Normal Inspection - Respiratory Exam Respiratory Exam: Clear to Ausculation Bilateral, NORMAL BREATHING PATTERN. absent: Respiratory Distress - Cardiovascular Exam Cardiovascular Exam: +S1, +S2 - GI/Abdominal Exam GI & Abdominal Exam: Soft, Normal Bowel Sounds. absent: Distended, Guarding, Tenderness, Rebound - Extremities Exam Extremities Exam: Normal Capillary Refill. absent: Calf Tenderness, Pedal Edema - Neurological Exam Neurological Exam: Alert, Awake, Oriented x3 Assessment and Plan - Assessment and Plan (Free Text) Assessment: Assessment: Acute pancreatitis, recent sonogram reviewed no gallstones and CBD normal. Denies any alcohol use likelihood of acute pancreatitis cause should may include dyslipidemia, that is improving. 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 Glaser <Angela Glaser V - Last Filed: 04/07/17 23:26> Objective - Vital Signs/Intake and Output Vital Signs (last 24 hours): Temp Pulse Resp BP Pulse Ox 99.4 F 66 17 117/92 H 97 04/07/17 15:38 04/07/17 22:20 04/07/17 22:20 04/07/17 22:00 04/07/17 22:20 Intake and Output: 04/07/17 04/08/17 18:59 06:59 Intake Total 3368.5 Output Total 1350 Balance 2018.5 - Medications Medications: Current Medications Famotidine (Pepcid) 20 mg IVP DAILY [facility] Last Admin: 04/07/17 09:39 Dose: 20 mg Fenofibrate (Tricor) 145 mg PO DAILY [facility] Last Admin: 04/07/17 09:45 Dose: 145 mg Dextrose/Sodium Chloride (Dextrose 5%/0.45% Ns 1000 Ml) 1,000 mls @ 200 mls/hr IV .Q5H [facility] Last Admin: 04/07/17 21:29 Dose: 200 mls/hr Insulin Detemir (Levemir) 20 unit SC HS [facility] Insulin Human Lispro (Humalog) 8 units SC AC [facility] Insulin Human Lispro (Humalog Med) 0 units SC ACHS [facility] PRN Reason: Protocol Morphine Sulfate (Morphine) 2 mg IVP Q4H PRN PRN Reason: Pain, moderate (4-7) Last Admin: 04/05/17 20:28 Dose: 2 mg Lacwd-9-Ybhk Ethyl Esters (Lovaza) 2 gm PO BID [facility] Last Admin: 04/07/17 17:47 Dose: 2 gm Ondansetron HCl (Zofran Inj) 4 mg IVP Q6H PRN PRN Reason: Nausea/Vomiting Simethicone (Mylicon Chew Tab) 80 mg PO BID PRN PRN Reason: GI distress - Labs Labs: 04/07/17 06:10 04/07/17 06:10 Attending/Attestation - Attestation I have personally seen and examined this patient.: Yes I have fully participated in the care of the patient.: Yes I have reviewed all pertinent clinical information, including history, physical exam and plan: Yes Notes (Text): this patient was seen and evaluated earlier. Triglycerides showing downward trend. Clinically patient is improving. Diet has been advanced to full liquid diet slowly advance the diet to low-fat diabetic diet
[2017-04-07] MEDS: Omega-3-Acid Ethyl Esters 1 GM Cap PO SCH ×2 (09:52→17:47)
[2017-04-07 12:34] LABS: HDL CHOLESTEROL 27 mg/dL (29-60)
[2017-04-07 12:46] LABS: LDL CHOLESTEROL 129 mg/dL (0-129)
--- NOTE | 2017-04-07 14:48 | CP.PCM.PN ---
<RADHA TRAN - Last Filed: 04/07/17 14:44> Subjective - Date & Time of Evaluation Date of Evaluation: 04/07/17 Time of Evaluation: 10:30 - Subjective Subjective: ICU PGY1 Progress Note: Pt seen and examined at bedside. No acute events overnight. This AM, pt denies n /v/d, sob, cp, abdominal/epigastic pain. Pt states that he is hungry. Objective - Vital Signs/Intake and Output Vital Signs (last 24 hours): Temp Pulse Resp BP Pulse Ox 98.5 F 69 13 119/48 L 99 04/06/17 20:00 04/07/17 08:02 04/07/17 07:20 04/07/17 07:00 04/07/17 07:20 Intake and Output: 04/07/17 04/07/17 06:59 18:59 Intake Total 4432 86.5 Output Total 4800 Balance -368 86.5 - Medications Medications: Current Medications Famotidine (Pepcid) 20 mg IVP DAILY [facility] Last Admin: 04/07/17 09:39 Dose: 20 mg Fenofibrate (Tricor) 145 mg PO DAILY [facility] Last Admin: 04/07/17 09:45 Dose: 145 mg Insulin Human Regular 100 (units/ Sodium Chloride) 100 mls @ 10 mls/hr IV .Q10H PRN; Protocol; 10 UNITS/HR PRN Reason: TITRATE PER PROTOCOL Last Titration: 04/07/17 14:34 Dose: 3 units/hr, 3 mls/hr Dextrose/Sodium Chloride (Dextrose 5%/0.45% Ns 1000 Ml) 1,000 mls @ 200 mls/hr IV .Q5H [facility] Last Admin: 04/07/17 14:33 Dose: 200 mls/hr Morphine Sulfate (Morphine) 2 mg IVP Q4H PRN PRN Reason: Pain, moderate (4-7) Last Admin: 04/05/17 20:28 Dose: 2 mg Tvlhl-7-Gmnq Ethyl Esters (Lovaza) 2 gm PO BID [facility] Last Admin: 04/07/17 09:52 Dose: 2 gm Ondansetron HCl (Zofran Inj) 4 mg IVP Q6H PRN PRN Reason: Nausea/Vomiting Simethicone (Mylicon Chew Tab) 80 mg PO BID PRN PRN Reason: GI distress - Labs Labs: 04/07/17 06:10 04/07/17 06:10 - Constitutional Appears: No Acute Distress - Head Exam Head Exam: ATRAUMATIC, NORMOCEPHALIC - Eye Exam Eye Exam: PERRL - ENT Exam ENT Exam: Mucous Membranes Moist - Respiratory Exam Respiratory Exam: Clear to Ausculation Bilateral - Cardiovascular Exam Cardiovascular Exam: RRR, +S1, +S2. absent: Gallop, Rubs, Murmur - GI/Abdominal Exam GI & Abdominal Exam: Soft, Normal Bowel Sounds. absent: Distended, Tenderness Additional comments: rounded, obese male - Extremities Exam Extremities Exam: absent: Calf Tenderness, Pedal Edema - Neurological Exam Neurological Exam: Alert, Awake, Oriented x3 - Psychiatric Exam Psychiatric exam: Normal Mood - Skin Skin Exam: Dry, Intact, Warm Assessment and Plan - Assessment and Plan (Free Text) Assessment: 62M with PMH of noncompliant DM2, HTN and HLD, admitted to ICU for acute pancreatitis 2/2 severe hypertriglyceridemia, complicated by DKA and agap metabolic acidosis. Pt's DKA has resolved, BS 200-230's, agap closed, on D51/2 NS @ 200/h. On admission, TG 2283, trended down to 695 today, on insulin drip for hypertriglyceredemia, refused TPE, started on liquid diet, will await till TG<500. Will start SQ insulin. Plan: Neuro : AAOx3 today. No change in mental status. Cont to monitor. CV : Hx of HTN, noncompliant. Will cont to monitor. Maintain MAP>65. Hemodynamically stable. Pulm: On RA. Saturating well. Maintain O2 sat>90% GI: Acute pancreatitis 2/2 severe hypertriglyceridemia TG 2238->1601->1098->695 today. C/w insulin drip and D51/2 NS @200/h, BS 200' s. will maintain euglycemia. Started on liquid diet, will start SQ insulin. Started fenofibrate and Lovaza Pt refused plasmapheresis, which is the preferred treatment. Continue with Protonix. Renal : Replace lytes, maintain euvolemia. Continue to monitor. ID: Afebrile, no leukocytosis. Continue to monitor. Endo: s/p DKA, agap closed yesterday. BS 200's. On insulin drip for severe hypertriglyceridemia tx. Cont with D51/2NS @200/h. started liwuid diet, start sq insulin. Maintain euglycemia. Heme: Stable. Cont to monitor. GI ppx - Protonix Discussed and seen with attending, Dr. Lebron. Radha Tran, PGY1 <[facility] [place] - Last Filed: 04/07/17 15:56> Objective - Vital Signs/Intake and Output Vital Signs (last 24 hours): Temp Pulse Resp BP Pulse Ox 99.4 F 77 15 117/68 97 04/07/17 15:38 04/07/17 15:20 04/07/17 15:20 04/07/17 15:00 04/07/17 15:20 Intake and Output: 04/07/17 04/07/17 06:59 18:59 Intake Total 4432 86.5 Output Total 4800 Balance -368 86.5 - Medications Medications: Current Medications Famotidine (Pepcid) 20 mg IVP DAILY [facility] Last Admin: 04/07/17 09:39 Dose: 20 mg Fenofibrate (Tricor) 145 mg PO DAILY [facility] Last Admin: 04/07/17 09:45 Dose: 145 mg Insulin Human Regular 100 (units/ Sodium Chloride) 100 mls @ 10 mls/hr IV .Q10H PRN; Protocol; 10 UNITS/HR PRN Reason: TITRATE PER PROTOCOL Last Titration: 04/07/17 14:34 Dose: 3 units/hr, 3 mls/hr Dextrose/Sodium Chloride (Dextrose 5%/0.45% Ns 1000 Ml) 1,000 mls @ 200 mls/hr IV .Q5H [facility] Last Admin: 04/07/17 14:33 Dose: 200 mls/hr Morphine Sulfate (Morphine) 2 mg IVP Q4H PRN PRN Reason: Pain, moderate (4-7) Last Admin: 04/05/17 20:28 Dose: 2 mg Nhtwa-1-Lmet Ethyl Esters (Lovaza) 2 gm PO BID [facility] Last Admin: 04/07/17 09:52 Dose: 2 gm Ondansetron HCl (Zofran Inj) 4 mg IVP Q6H PRN PRN Reason: Nausea/Vomiting Simethicone (Mylicon Chew Tab) 80 mg PO BID PRN PRN Reason: GI distress - Labs Labs: 04/07/17 06:10 04/07/17 06:10 Attending/Attestation - Attestation I have personally seen and examined this patient.: Yes I have fully participated in the care of the patient.: Yes I have reviewed all pertinent clinical information, including history, physical exam and plan: Yes Notes (Text): 04/07/17 15:54 62 y/o M w/ resolving pancreatitis Improving Lipase and abd pain. TGYL improving on Insulin drip. DKA resolved . Insulin drip to be stopped with overlap of long acting insulin and sliding scale. Diet to be started as tolerated. Fibrates and Lopid started. Labs to be followed . Pt/OT dvt P ppi cc time 55 min
--- NOTE | 2017-04-07 14:50 | CP.PCM.PN ---
Subjective - Date & Time of Evaluation Date of Evaluation: 04/07/17 Time of Evaluation: 07:20 - Subjective Subjective: Jose Sands D.O. PGY-2, Internal Medicine, Dr. Jean Baptiste/Lisa Service: Progress Note 62 year old male with a PMH of diabetes mellitus type 2, hypertension, and medication non-compliance who presented with abdominal pain, admitted to the ICU with diabetic ketoacidosis as well as acute pancreatitis and was found to have triglycerides > 2000. Patient was seen and examined at bedside. Patient feeling much better, abdominal pain improved, however still under ICU monitoring and NPO so somewhat upset at his situation. No acute overnight events. Objective - Vital Signs/Intake and Output Vital Signs (last 24 hours): Temp Pulse Resp BP Pulse Ox 98.5 F 69 13 119/48 L 99 04/06/17 20:00 04/07/17 08:02 04/07/17 07:20 04/07/17 07:00 04/07/17 07:20 Intake and Output: 04/07/17 04/07/17 06:59 18:59 Intake Total 4432 81.5 Output Total 4800 Balance -368 81.5 - Medications Medications: Current Medications Famotidine (Pepcid) 20 mg IVP DAILY [facility] Last Admin: 04/07/17 09:39 Dose: 20 mg Fenofibrate (Tricor) 145 mg PO DAILY [facility] Last Admin: 04/07/17 09:45 Dose: 145 mg Insulin Human Regular 100 (units/ Sodium Chloride) 100 mls @ 10 mls/hr IV .Q10H PRN; Protocol; 10 UNITS/HR PRN Reason: TITRATE PER PROTOCOL Last Titration: 04/07/17 12:17 Dose: 2 units/hr, 2 mls/hr Dextrose/Sodium Chloride (Dextrose 5%/0.45% Ns 1000 Ml) 1,000 mls @ 200 mls/hr IV .Q5H [facility] Last Admin: 04/07/17 09:40 Dose: 200 mls/hr Morphine Sulfate (Morphine) 2 mg IVP Q4H PRN PRN Reason: Pain, moderate (4-7) Last Admin: 04/05/17 20:28 Dose: 2 mg Osjeo-4-Lqic Ethyl Esters (Lovaza) 2 gm PO BID [facility] Last Admin: 07/25/17 09:52 Dose: 2 gm Ondansetron HCl (Zofran Inj) 4 mg IVP Q6H PRN PRN Reason: Nausea/Vomiting Simethicone (Mylicon Chew Tab) 80 mg PO BID PRN PRN Reason: GI distress - Labs Labs: 04/07/17 06:10 04/07/17 06:10 - Constitutional Appears: well developed, well nourished - Head Exam Head Exam: ATRAUMATIC, NORMOCEPHALIC - Eye Exam Eye Exam: EOMI, Normal appearance - ENT Exam ENT Exam: Mucous Membranes Moist - Neck Exam Neck Exam: absent: Lymphadenopathy, Meningismus, Thyromegaly - Respiratory Exam Respiratory Exam: Clear to Ausculation Bilateral. absent: Rales, Rhonchi, Wheezes - Cardiovascular Exam Cardiovascular Exam: RRR, +S1, +S2 - GI/Abdominal Exam GI & Abdominal Exam: soft, NT, ND, +BSx4 - Extremities Exam Extremities Exam: Normal Inspection. absent: Calf Tenderness, Pedal Edema - Back Exam Back Exam: absent: CVA tenderness (L), CVA tenderness (R) - Neurological Exam Neurological Exam: Alert, Awake, Oriented x3 - Skin Skin Exam: Dry, Intact Assessment and Plan - Assessment and Plan (Free Text) Assessment: 62 year old male with a PMH of diabetes mellitus type 2, hypertension, and medication non-compliance who presented with abdominal pain, admitted to the ICU with diabetic ketoacidosis as well as acute pancreatitis and was found to have triglycerides greater than 2000. Plan: 1. DKA in setting of type 2 DM and medication non-complaince - resolved Gap closed HgbA1C was 14.1, spent more than 35 minutes in carefully detailing to patient the importance of medication compliance, pancreas function, beta islet cell production of insulin, insulin sensitivity and resistance at the cellular level , importance of diet and exercise and maintenance of healthy weight, and how these all relate to his disease process, and how continued noncompliance will lead to complications like renal disease and possible failure, small vessel disease with possibility for foot amputations, increase risk of HI and stroke, welcomed and answered all questions and patient verbalized understanding and his desire to improve his health having had this episode Still on insulin GTT due to hypertriglyceridemia, refer to #2 Will transition to long action insulin and RISS once off GTT Continue fingersticks q1h 2. Acute Pancreatitis - improved Asymptomatic, lipase downtrending 2/2 DKA and/or hypertriglyceridemia GI following, recs appreciated 3. Hypertriglyceridemia, hypercholesterolemia Unknown etiology, poss familial Started lovaza and fenofibrate Will start statin as outpatient since he took gemfibrozil On insulin GTT to bring down, downtrending Under ICU care Refused plasmapheresis 4. Hx HTN - resolved, off antihypertensives 5. Hypokalemia - repleted Repeat CMP tomorrow AM GI/DVT ppx: Pepcid/SCDs Patient seen and examined and case was reviewed in detail with internet marketing director and attending physician.
[2017-04-07] MEDS ORDERED: Insulin Detemir 100 units/ml Vial (Levemir) SC SCH ×3 (19:02→22:00)
[2017-04-07] MEDS ORDERED: Insulin Lispro (humaLOG) MEDIUM Coverage SC SCH (22:00)
--- NOTE | 2017-04-08 05:23 | PN ---
DATE: 04/07/2017 LOCATION: ICU 128, room 2. This is a 62-year-old male with recent uncontrolled type 2 insulin requiring diabetes with actually no recent diabetic medical therapy at this time, presented here with diffuse abdominal pain and intractable vomiting episodes with supervening acute pancreatitis and concomitant more of dyslipidemia and is now being followed closely for metabolic management. He has had vigorous IV hydration and intensive insulin therapy with an insulin drip infusion over the last 24 hours and that has been discontinued today as noted. His latest triglyceride levels have come down to 695 with a cholesterol of 474 and HDL of 27, and LDL of 129. His lipase level is now 601. The latest chemistry showed a BUN of 7, sodium 137, potassium 3.4, chloride 104, CO2 23, glucose 212, and creatinine 0.7. So at this time, we will actually modify his insulin regimen and increase the Levemir to 20 units subcu at bedtime daily to start tonight. We will also add Humalog given at 6 units subcu t.i.d. before meals to start tomorrow morning as ordered. We will modify the coverage scale to avoid hypoglycemia and detailed orders have been given. We will also continue the vigorous IV hydration as ordered. We would initiate diabetic education to include insulin self administration, and in fact, his need for insulin therapy was discussed with the patient at bedside today. We will also initiate a dietary evaluation for nutritional counseling and healthier food choices, especially a low fat diet. We will follow with you. Kristina Malloy MD
[2017-04-08 05:47] LABS: BASO # 0.01 K/mm3 (0.0-2.0); BASO % 0.2 % (0.0-3.0); EOS # 0.1 (0.0-0.7); EOS % 2.4 % (1.5-5.0); GRAN # 2.69 (1.4-6.5); GRAN % 63.4 % (50.0-68.0); HEMOGLOBIN 10.8 gm/dL (14.0-18.0); LYMPH # 0.9 (1.2-3.4); LYMPH % 22.2 % (22.0-35.0); MEAN CELL VOLUME 78.7 fL (80.0-105.0); MEAN CORPUSCULAR HEMOGLOBIN 26.1 pg (25.0-35.0); MEAN CORPUSCULAR HGB CONC 33.1 g/dl (31.0-37.0); MEAN PLATELET VOLUME 8.8 fl (7.0-11.0); MONO # 0.5 (0.1-0.6); MONO % 11.8 % (1.0-6.0); PLATELET COUNT 215 10^3/uL (120.0-450.0); RBC 4.14 10^6/uL (3.5-6.1); RED CELL DISTRIBUTION WIDTH 16.7 % (11.5-14.5); WHITE BLOOD COUNT 4.2 10^3/ul (4.5-11.0)
[2017-04-08 06:34] LABS: BLOOD UREA NITROGEN 5 mg/dL (7-21); CALCIUM 8.8 mg/dL (8.4-10.5); GFR AFRICAN-AMERICAN > 60; GFR NON-AFRICAN AMERICAN > 60; LIPASE 539 U/L (23-300)
[2017-04-08 06:45] LABS: LDL CHOLESTEROL 125 mg/dL (0-129)
[2017-04-08 07:17] LABS: HDL CHOLESTEROL 23 mg/dL (29-60)
[2017-04-08] MEDS ORDERED: Insulin Regular 1 UNITS/0.01 ML ML SC SCH (07:30)
--- NOTE | 2017-04-08 07:51 | CP.PCM.PN ---
<Jose Sands - Last Filed: 04/08/17 07:47> Subjective - Date & Time of Evaluation Date of Evaluation: 04/08/17 Time of Evaluation: 06:45 - Subjective Subjective: Jose Sands D.O. PGY-2, Internal Medicine, Dr. Jean Baptiste/Lisa Service: Progress Note 62 year old male with a PMH of diabetes mellitus type 2, hypertension, and medication non-compliance who presented with abdominal pain, admitted to the ICU with diabetic ketoacidosis as well as acute pancreatitis and was subsequently found to have triglycerides > 2000. Patient was seen and examined at bedside with medical team. Patient continues to improve, currently off the insulin drip and ready to be transferred out of the ICU. Patient denies any acute complaints including any N/V/D/C/abd pain/MONREAL/CP/SOB or otherwise. Patient again states that he understands that his non-compliance has lead to this point and he wants to improve his health. Objective - Vital Signs/Intake and Output Vital Signs (last 24 hours): Temp Pulse Resp BP Pulse Ox 99.4 F 77 90 H 113/52 L 85 L 04/07/17 15:38 04/08/17 07:30 04/08/17 07:30 04/08/17 06:00 04/08/17 07:30 Intake and Output: 04/08/17 04/08/17 06:59 18:59 Intake Total 2400 Output Total 1050 Balance 1350 - Medications Medications: Current Medications Famotidine (Pepcid) 20 mg IVP DAILY [facility] Last Admin: 04/07/17 09:39 Dose: 20 mg Fenofibrate (Tricor) 145 mg PO DAILY [facility] Last Admin: 04/07/17 09:45 Dose: 145 mg Insulin Detemir (Levemir) 20 unit SC HS [facility] Insulin Human Lispro (Humalog) 8 units SC AC BUNNY Insulin Human Lispro (Humalog Med) 0 units SC ACHS BUNNY PRN Reason: Protocol Morphine Sulfate (Morphine) 2 mg IVP Q4H PRN PRN Reason: Pain, moderate (4-7) Last Admin: 04/05/17 20:28 Dose: 2 mg Epcbw-3-Qqrf Ethyl Esters (Lovaza) 2 gm PO BID [facility] Last Admin: 04/07/17 17:47 Dose: 2 gm Ondansetron HCl (Zofran Inj) 4 mg IVP Q6H PRN PRN Reason: Nausea/Vomiting Simethicone (Mylicon Chew Tab) 80 mg PO BID PRN PRN Reason: GI distress - Labs Labs: 04/08/17 05:00 04/08/17 05:45 - Constitutional Appears: well developed, well nourished, pleasant AA male in NAD - Head Exam Head Exam: ATRAUMATIC, NORMOCEPHALIC - Eye Exam Eye Exam: EOMI, Normal appearance - ENT Exam ENT Exam: Mucous Membranes Moist, oropharynx pink and moist - Neck Exam Neck Exam: absent: Lymphadenopathy, Meningismus, Thyromegaly - Respiratory Exam Respiratory Exam: Clear to Ausculation Bilateral. absent: Rales, Rhonchi, Wheezes - Cardiovascular Exam Cardiovascular Exam: RRR, +S1, +S2, no M/R/G - GI/Abdominal Exam GI & Abdominal Exam: soft, NT, ND, +BSx4 - Extremities Exam Extremities Exam: Normal Inspection. absent: Calf Tenderness, Pedal Edema - Neurological Exam Neurological Exam: Alert, Awake, Oriented x4, no focal deficits, speech is fluid and coherent - Skin Skin Exam: Dry, Intact Assessment and Plan - Assessment and Plan (Free Text) Assessment: 62 year old male with type 2 DM, HTN, and medication non- compliance who presented in DKA, found to have pancreatitis and hypertriglyceridemia Plan: 1. DKA in setting of type 2 DM and medication non-complaince - resolved Gap closed, HgbA1C was 14.1, patient has received multiple episodes of counseling on importance of medication compliance Off Insulin GTT, will transfer out of ICU Endo Dr. Malloy following, recs appreciated Now on levemir 20 HS with regular insulin 8 AC and starting consistent carb diet today D/C'ed D5 1/2NS and encouraged PO hydration Continue fingersticks ACHS 2. Acute Pancreatitis - improved Asymptomatic, lipase cotinues to downtrend 2/2 DKA and/or hypertriglyceridemia GI following, recs appreciated Now on oliver diet, will monitor how he tolerates 3. Hypertriglyceridemia and hypercholesterolemia Unknown etiology, poss familial, continues to downtrend Cont lovaza and fenofibrate Off insulin GTT Will start statin as outpatient since he took gemfibrozil 4. Hx HTN - resolved, off antihypertensives 5. Hypokalemia - resolved DVT ppx: SCDs Patient seen and examined and case was reviewed in detail with media intern and attending physician. <Rocky Gonzalez - Last Filed: 04/10/17 19:24> Objective - Vital Signs/Intake and Output Vital Signs (last 24 hours): Temp Pulse Resp BP Pulse Ox 98.6 F 68 18 124/68 98 04/09/17 07:30 04/09/17 07:30 04/09/17 07:30 04/09/17 07:30 04/09/17 07:30 - Labs Labs: 04/09/17 07:30 04/09/17 07:30 Attending/Attestation - Attestation I have personally seen and examined this patient.: Yes I have fully participated in the care of the patient.: Yes I have reviewed all pertinent clinical information, including history, physical exam and plan: Yes Notes (Text): 04/10/17 19:24 Medical record note made by the resident after discussion with my direction and input after the patient was personally seen and examined by me. I have reviewed the chart and agree that the record accurately reflects by personal performance of the history, physical exam, data review, and medical decision-making, in the course for the patient. I have also personally directed the plan of care.
[2017-04-08] MEDS: Insulin Lispro (humaLOG) MEDIUM Coverage SC SCH ×4 (08:18→21:45)
[2017-04-08] MEDS: Insulin Lispro 1 UNITS/0.01 ML SC SCH ×3 (08:26→17:16)
[2017-04-08] MEDS: Omega-3-Acid Ethyl Esters 1 GM Cap PO SCH ×2 (09:22→17:16)
--- NOTE | 2017-04-08 09:49 | CP.PCM.PN ---
<Bambi Zelaya - Last Filed: 04/08/17 09:49> Subjective - Date & Time of Evaluation Date of Evaluation: 04/08/17 Time of Evaluation: 08:45 - Subjective Subjective: S&E at bedside, eating mod carb diet and tolerating, he just had a BM, no diarrhea or bleeding. Denies abdominal pain, feeling better, no new complaints or acute overnight events. Objective - Vital Signs/Intake and Output Vital Signs (last 24 hours): Temp Pulse Resp BP Pulse Ox 99.4 F 70 14 141/78 100 04/07/17 15:38 04/08/17 09:10 04/08/17 09:10 04/08/17 08:00 04/08/17 09:10 Intake and Output: 04/08/17 04/08/17 06:59 18:59 Intake Total 2400 Output Total 1050 Balance 1350 - Medications Medications: Current Medications Famotidine (Pepcid) 20 mg IVP DAILY [facility] Last Admin: 04/08/17 09:22 Dose: 20 mg Fenofibrate (Tricor) 145 mg PO DAILY [facility] Last Admin: 04/08/17 09:22 Dose: 145 mg Insulin Detemir (Levemir) 20 unit SC HS BUNNY Insulin Human Lispro (Humalog) 8 units SC AC [facility] Last Admin: 04/08/17 08:26 Dose: 8 units Insulin Human Lispro (Humalog Med) 0 units SC ACHS [facility] PRN Reason: Protocol Last Admin: 04/08/17 08:18 Dose: Not Given Morphine Sulfate (Morphine) 2 mg IVP Q4H PRN PRN Reason: Pain, moderate (4-7) Last Admin: 04/05/17 20:28 Dose: 2 mg Kzhom-8-Hpuv Ethyl Esters (Lovaza) 2 gm PO BID [facility] Last Admin: 04/08/17 09:22 Dose: 2 gm Ondansetron HCl (Zofran Inj) 4 mg IVP Q6H PRN PRN Reason: Nausea/Vomiting Simethicone (Mylicon Chew Tab) 80 mg PO BID PRN PRN Reason: GI distress - Labs Labs: 04/08/17 05:00 04/08/17 05:45 - Constitutional Appears: No Acute Distress - Head Exam Head Exam: NORMOCEPHALIC - Eye Exam Eye Exam: Normal appearance. absent: Scleral icterus - ENT Exam ENT Exam: Mucous Membranes Moist - Neck Exam Neck Exam: Normal Inspection - Respiratory Exam Respiratory Exam: Clear to Ausculation Bilateral, NORMAL BREATHING PATTERN. absent: Respiratory Distress - Cardiovascular Exam Cardiovascular Exam: +S1, +S2 - GI/Abdominal Exam GI & Abdominal Exam: Soft, Normal Bowel Sounds. absent: Guarding, Tenderness, Organomegaly, Rebound - Neurological Exam Neurological Exam: Alert, Awake, Oriented x3 - Skin Skin Exam: Dry, Warm Assessment and Plan - Assessment and Plan (Free Text) Assessment: Assessment: Acute pancreatitis, recent sonogram reviewed no gallstones and CBD normal. Denies any alcohol use likelihood of acute pancreatitis cause should may include dyslipidemia, that is improving. 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 Glaser <Angela Glaser V - Last Filed: 04/08/17 23:41> Objective - Vital Signs/Intake and Output Vital Signs (last 24 hours): Temp Pulse Resp BP Pulse Ox 98.1 F 61 16 110/58 L 99 04/08/17 14:00 04/08/17 14:00 04/08/17 14:00 04/08/17 14:00 04/08/17 14:00 Intake and Output: 04/08/17 04/09/17 18:59 06:59 Intake Total 780 Balance 780 - Medications Medications: Current Medications Famotidine (Pepcid) 20 mg IVP DAILY [facility] Last Admin: 04/08/17 09:22 Dose: 20 mg Fenofibrate (Tricor) 145 mg PO DAILY [facility] Last Admin: 04/08/17 09:22 Dose: 145 mg Insulin Detemir (Levemir) 24 unit SC HS [facility] Last Admin: 04/08/17 21:46 Dose: 24 unit Insulin Human Lispro (Humalog Med) 0 units SC ACHS [facility] PRN Reason: Protocol Last Admin: 04/08/17 17:00 Dose: Not Given Insulin Human Lispro (Humalog) 10 units SC AC [facility] Last Admin: 04/08/17 17:16 Dose: 10 units Morphine Sulfate (Morphine) 2 mg IVP Q4H PRN PRN Reason: Pain, moderate (4-7) Last Admin: 04/05/17 20:28 Dose: 2 mg Uoaur-7-Xuwh Ethyl Esters (Lovaza) 2 gm PO BID [facility] Last Admin: 04/08/17 17:16 Dose: 2 gm Ondansetron HCl (Zofran Inj) 4 mg IVP Q6H PRN PRN Reason: Nausea/Vomiting Simethicone (Mylicon Chew Tab) 80 mg PO BID PRN PRN Reason: GI distress - Labs Labs: 04/08/17 05:00 04/08/17 05:45 Attending/Attestation - Attestation I have personally seen and examined this patient.: Yes I have fully participated in the care of the patient.: Yes I have reviewed all pertinent clinical information, including history, physical exam and plan: Yes Notes (Text): th
[2017-04-08] MEDS ORDERED: Insulin Detemir 100 units/ml Vial (Levemir) SC SCH (22:00)
--- NOTE | 2017-04-08 23:07 | PN ---
ENDO-FOLLOWUP NOTE DATE: 04/08/2017 LOCATION: Room 575. SUBJECTIVE: This is a 62-year-old male with recent uncontrolled type 2 insulin requiring diabetes presenting here with acute pancreatitis and hypertriglyceridemia and received intensive insulin therapy with an insulin drip infusion and also vigorous IV hydration as ordered. He has since then improved clinically and metabolically as noted by us. He has now been advanced to solid food which he is tolerating very well as noted. His latest chemistries showed a BUN of 5, sodium 135, potassium 3.7, chloride 105, CO2 24, glucose 184, and creatinine 0.7. His glucose levels today have ranged from 192 to 200 and 223 mg/dL. His lipase level is down to 539 and the triglyceride levels now are 518 with a cholesterol of 396. So, at this time, we will modify his baseline bolus insulin regimen and increase the Levemir to 24 units subcu at bedtime daily as ordered, to start tonight. We will also increase the Humalog to 10 units subcu t.i.d. before meals, to start at dinnertime today as ordered. We will continue the low dose correction scale using Humalog insulin as given. We will obtain serial chemistries and supplement accordingly as needed. We will also initiate diabetic education to include insulin self-administration as ordered. We will also request a nutritional consult for diabetic evaluation and a low-fat diet as ordered. We will follow. Kristina Malloy MD
[2017-04-09] MEDS: Insulin Lispro (humaLOG) MEDIUM Coverage SC SCH ×3 (07:30→16:49)
[2017-04-09] MEDS: Insulin Lispro 1 UNITS/0.01 ML SC SCH ×2 (07:30→11:31)
[2017-04-09 08:09] LABS: BASO # 0.02 K/mm3 (0.0-2.0); BASO % 0.5 % (0.0-3.0); EOS # 0.1 (0.0-0.7); EOS % 2.3 % (1.5-5.0); GRAN # 2.24 (1.4-6.5); GRAN % 57.9 % (50.0-68.0); HEMOGLOBIN 10.4 gm/dL (14.0-18.0); LYMPH # 0.9 (1.2-3.4); LYMPH % 24.3 % (22.0-35.0); MEAN CORPUSCULAR HEMOGLOBIN 25.4 pg (25.0-35.0); MEAN CORPUSCULAR HGB CONC 32.6 g/dl (31.0-37.0); MEAN PLATELET VOLUME 8.9 fl (7.0-11.0); MONO # 0.6 (0.1-0.6); PLATELET COUNT 246 10^3/uL (120.0-450.0); RBC 4.09 10^6/uL (3.5-6.1); RED CELL DISTRIBUTION WIDTH 16.3 % (11.5-14.5); WHITE BLOOD COUNT 3.9 10^3/ul (4.5-11.0)
[2017-04-09 08:26] LABS: BLOOD UREA NITROGEN 8 mg/dL (7-21); CALCIUM 9.1 mg/dL (8.4-10.5); GFR AFRICAN-AMERICAN > 60; GFR NON-AFRICAN AMERICAN > 60; LIPASE 513 U/L (23-300)
[2017-04-09] MEDS ORDERED: Potassium Chloride 20 mEq ER Tab PO ONE (09:15)
[2017-04-09 09:41] VITALS: BP 124/68; PULSE 68; RESP 18; TEMP 98.6; O2SAT 98
[2017-04-09] MEDS: Omega-3-Acid Ethyl Esters 1 GM Cap PO SCH (11:17)
[2017-04-09] MEDS ORDERED: Insulin Lispro 1 UNITS/0.01 ML SC SCH (16:30)
--- NOTE | 2017-04-09 17:07 | PN ---
LOCATION: Room 575. SUBJECTIVE: This is a 62-year-old male with recent uncontrolled type 2 insulin requiring diabetes, now being followed closely for metabolic management. His glycemic levels are fluctuating but much improved at this time and today's glucose levels have raised from 164 to 237 mg/dL. The latest chemistry showed a BUN of 8, sodium 137, potassium 3.5, chloride 104, CO2 24, glucose *------* and creatinine 0.7. His lipase level is down now to 513 mg/dL and his triglycerides are also down to 471. So at this time, we will continue the modified basal and bolus insulin regimen as given with Levemir given as 28 units subcu at bedtime daily to start tonight. We will also increase the Humalog to 12 units subcu t.i.d. before meals to start at dinnertime today as ordered. We will titrate incremental as indicated to optimize metabolic control. We will also continue the diabetic education to include insulin self-administration techniques, so the patient will be going home on the upper mentioned basal and bolus insulin regimen as given. We will obtain serial chemistries and supplement accordingly as needed. We will follow. Kristina Malloy MD
--- NOTE | 2017-04-09 18:08 | CP.PCM.DIS ---
Provider - Provider Date of Admission: 04/03/17 22:16 Attending physician: Ez Jean Baptiste MD Primary care physician: Dr. Jean Baptiste Consults: ICU: Vi GI: Jailyn Heme: Teetee Endo: Cam Time Spent in preparation of Discharge (in minutes): 55 Diagnosis - Discharge Diagnosis (1) Pancreatitis Status: Acute Priority: High (2) Hypertriglyceridemia Status: Chronic Priority: High (3) DKA (diabetic ketoacidoses) Status: Acute Priority: High Hospital Course - Lab Results Lab Results: Micro Results 04/03/17 23:50 Naris MRSA Culture (Admit) - Final MRSA NOT DETECTED Most Recent Lab Values WBC 3.9 10^3/ul (4.5-11.0) L 04/09/17 07:30 RBC 4.09 10^6/uL (3.5-6.1) 04/09/17 07:30 Hgb 10.4 gm/dL (14.0-18.0) L 04/09/17 07:30 Hct 31.9 % (42.0-52.0) L 04/09/17 07:30 MCV 78.0 fL (80.0-105.0) L 04/09/17 07:30 MCH 25.4 pg (25.0-35.0) 04/09/17 07:30 MCHC 32.6 g/dl (31.0-37.0) 04/09/17 07:30 RDW 16.3 % (11.5-14.5) H 04/09/17 07:30 Plt Count 246 10^3/uL (120.0-450.0) 04/09/17 07:30 MPV 8.9 fl (7.0-11.0) 04/09/17 07:30 Gran % 57.9 % (50.0-68.0) 04/09/17 07:30 Lymph % (Auto) 24.3 % (22.0-35.0) 04/09/17 07:30 Walsh % (Auto) 15.0 % (1.0-6.0) H 04/09/17 07:30 Eos % (Auto) 2.3 % (1.5-5.0) 04/09/17 07:30 Baso % (Auto) 0.5 % (0.0-3.0) 04/09/17 07:30 Gran # 2.24 (1.4-6.5) 04/09/17 07:30 Lymph # 0.9 (1.2-3.4) L 04/09/17 07:30 Walsh # 0.6 (0.1-0.6) 04/09/17 07:30 Eos # 0.1 (0.0-0.7) 04/09/17 07:30 Baso # 0.02 K/mm3 (0.0-2.0) 04/09/17 07:30 Neutrophils % (Manual) 81 % (50.0-70.0) H 04/03/17 17:50 Band Neutrophils % 3 % (0-2) H 04/03/17 17:50 Lymphocytes % (Manual) 7 % (22.0-35.0) L 04/03/17 17:50 Monocytes % (Manual) 9 % (1.0-6.0) H 04/03/17 17:50 Platelet Evaluation Normal (NORMAL) 04/03/17 17:50 pO2 76 mm/Hg (30-55) H 04/06/17 08:50 VBG pH 7.36 (7.32-7.43) 04/06/17 08:50 VBG pCO2 46.0 (40-60) 04/06/17 08:50 VBG HCO3 26.0 mmol/l (21-28) 04/06/17 08:50 VBG Total CO2 27.4 mmol.L (22-28) 04/06/17 08:50 VBG O2 Sat (Calc) 97.7 % (40-65) H 04/06/17 08:50 VBG Base Excess 0.2 mmol/L (0.0-2.0) 04/06/17 08:50 VBG Potassium 3.8 mmol/L (3.6-5.2) 04/06/17 08:50 Sodium 140.0 mmol/L (132-148) 04/06/17 08:50 Chloride 111.0 mmol/L (98-107) H 04/06/17 08:50 Glucose 158 mg/dl (75-110) H 04/06/17 08:50 Lactate 0.8 mmol/L (0.7-2.1) 04/06/17 08:50 FiO2 21.0 % 07/24/17 08:50 Sodium 137 mmol/L (132-148) 04/09/17 07:30 Potassium 3.5 mmol/L (3.6-5.0) L 04/09/17 07:30 Chloride 104 mmol/L (98-107) 04/09/17 07:30 Carbon Dioxide 24 mmol/L (21-33) 04/09/17 07:30 Anion Gap 13 (10-20) 04/09/17 07:30 BUN 8 mg/dL (7-21) 04/09/17 07:30 Creatinine 0.7 mg/dL (0.5-1.4) 04/09/17 07:30 Est GFR ( Amer) > 60 04/09/17 07:30 Est GFR (Non-Af Amer) > 60 04/09/17 07:30 POC Glucose (mg/dL) 237 mg/dL (65-110) H 04/09/17 11:27 Random Glucose 150 mg/dL (70-110) H 04/09/17 07:30 Hemoglobin A1c 14.1 % (4.2-6.5) H 04/04/17 04:05 Serum Osmolality 312 mosm/kg (271-296) H 04/03/17 10:50 Calcium 9.1 mg/dL (8.4-10.5) 04/09/17 07:30 Phosphorus 2.3 mg/dL (2.5-4.5) L 04/04/17 04:05 Magnesium 2.2 mg/dL (1.7-2.2) 04/04/17 04:05 Total Bilirubin 1.0 mg/dL (0.2-1.3) 04/03/17 17:50 AST 25 U/L (15-59) 04/03/17 17:50 ALT 19 U/L (7-56) 04/03/17 17:50 Alkaline Phosphatase 144 U/L (38-133) H 04/03/17 17:50 Troponin I < 0.01 ng/mL 04/04/17 00:01 Total Protein 8.2 g/dL (5.8-8.3) 04/03/17 17:50 Albumin 4.1 g/dL (3.0-4.8) 04/03/17 17:50 Globulin 4.2 gm/dL 04/03/17 17:50 Albumin/Globulin Ratio 1.0 (1.1-1.8) L 04/03/17 17:50 Triglycerides 471 mg/dL (35-160) H 04/09/17 07:30 Cholesterol 396 mg/dL (130-200) H 04/08/17 05:45 LDL Cholesterol Direct 125 mg/dL (0-129) 04/08/17 05:45 HDL Cholesterol 23 mg/dL (29-60) L 04/08/17 05:45 Amylase 320 U/L (35-125) H 04/03/17 21:45 Lipase 513 U/L (23-300) H 04/09/17 07:30 Free T4 1.12 ng/dL (0.78-2.19) 04/04/17 08:09 TSH 3rd Generation 0.66 mIU/mL (0.46-4.68) 04/04/17 08:09 Venous Blood Potassium 3.8 mmol/L (3.6-5.2) 04/06/17 08:50 Urine Color Yellow (YELLOW) 04/03/17 19:05 Urine Appearance Clear (CLEAR) 04/03/17 19:05 Urine pH 6.0 (4.7-8.0) 04/03/17 19:05 Ur Specific [place] 1.015 (1.005-1.035) 04/03/17 19:05 Urine Protein 30 mg/dL (<30 mg/dL) H 04/03/17 19:05 Urine Glucose (UA) >=1000 mg/dL (NEGATIVE) 04/03/17 19:05 Urine Ketones >=80 mg/dL (NEGATIVE) 04/03/17 19:05 Urine Blood Small (NEGATIVE) H 04/03/17 19:05 Urine Nitrate Negative (NEGATIVE) 04/03/17 19:05 Urine Bilirubin Negative (NEGATIVE) 04/03/17 19:05 Urine Urobilinogen 0.2 E.U./dL (<1 E.U./dL) 04/03/17 19:05 Ur Leukocyte Esterase Negative Zaki/uL (NEGATIVE) 04/03/17 19:05 Urine RBC 1 - 3 /hpf (0-2) 04/03/17 19:05 Urine WBC 0 - 2 /hpf (0-6) 04/03/17 19:05 Ur Epithelial Cells 0 - 2 /hpf (0-5) 04/03/17 19:05 - Hospital Course Hospital Course: Patient is a 62 year old male presented to [facility] [place] [facility] on 04/03 with complaints of diffuse abdominal pain which started earlier that day. Pain was worst in the epigastric area and radiated downwards bilaterally. Patient admitted that he had been non-compliant with his meds and for the past year has been off his DM, HTN and HLD medications. Patient was clinically dehydrated, with a random glucose of 423, an elevated anion gap, and lipase of 4438. Treatment was initiated in the ICU for DKA and pancreatitis with IVF and insulin drip. Later triglycerides were found to be elevated at 2238, he was offered plasmapharesis, but he refused. CT of the abdomen and pelvis with IV contrast was ordered for the possible pancreatitis. On 04/04 the results of the CT of abdomen and pelvis were diagnostic of acute pancreatitis. He was also made NPO, hourly fingerstick glucose checks and Q4 BMPs were started to monitor the anion gap and improvement in DKA. On 04/05 anion gap closed, but he remained on insulin drip due to elevated but downtrending hypertriglyceridemia. Patients triglycerides and lipase continue to be elevated on 04/06. On 04/08 patient was started on a clear liquid diet today, and insulin drip changed to SQ Basal and Regular insulin. Patient began lovaza and fenofibrate for hypertriglyceridemia. On 04/09 Patient was transitioned to a full carb diet. Today patient was offered an MRCP for further evaluation of pancreatitis but refused and will follow-up as an outpatient for the MRCP. He now denies any abdominal pain, N/V/D/C, CP, SOB. He was repeatedly counselled on the importance of glycemic control and adherence to medications, including 35 minutes spent today discussing regular fingerstick glucose checks, hydration, and diet. Triglycerides continued to decrease on the SQ insulin and oral medications, and glucose slowly downtrending. All questions were answered to patient's satisfaction, and he was discharged to home. He was instructed to follow-up next with Dr. Jean Baptiste for continued monitoring in outpatient clinic. Discharge Exam - Head Exam Head Exam: NORMOCEPHALIC - Eye Exam Eye Exam: EOMI, Normal appearance - ENT Exam ENT Exam: Mucous Membranes Moist - Neck Exam Neck exam: Full Rom, Normal Inspection - Respiratory Exam Respiratory Exam: Clear to PA & Lateral. absent: Rales, Rhonchi, Wheezes - Cardiovascular Exam Cardiovascular Exam: RRR, +S1, +S2 - GI/Abdominal Exam GI & Abdominal Exam: Normal Bowel Sounds, Soft. absent: Tenderness - Extremities Exam Extremities exam: normal inspection - Back Exam Back exam: absent: CVA tenderness (L), CVA tenderness (R) - Neurological Exam Neurological exam: Alert, Oriented x3 - Psychiatric Exam Psychiatric exam: Normal Affect, Normal Mood - Skin Skin Exam: Dry, Intact Discharge Plan - Discharge Medications Prescriptions: Blood Sugar Diagnostic [Advanced Glucose Test Strips] 1 each AMHS #60 strip Blood-Glucose Meter [Blood Glucose Meter] 1 each ACHS #1 each Fenofibric Acid (Choline) [Fenofibric Acid] 135 mg PO DAILY #30 capsule. Insulin Detemir [Levemir] 24 units SC HS #1 vial Insulin Regular, Human [Novolin R] 100 unit IJ AC #1 vial Lancets [Blood Lancets] 1 each ACHS #60 each [id number]-4-Tsuq Ethyl Esters 1 GM [Lovaza] 2 gm PO BID #120 sgl Rosuvastatin Calcium 20 mg PO HS #30 tablet - Follow Up Plan Condition: STABLE Disposition: HOME/ ROUTINE Patient education suggested?: Yes Instructions: Diethylpropion (By mouth), Low Fat Diet (DC), Diabetic Ketoacidosis (DC), Basic Carbohydrate Counting (DC), Meal Planning with the Plate Method (GEN), Obesity (DC), Diabetic Ketoacidosis (GEN) Additional Instructions: 1. Take Insulin Levimir 24 units nightly 2. Take Insulin Humalin before meals 3. Check blood sugar every morning and evening 4. Take other new medications as prescribed 5. Keep hydrated, drink 4-6 liters of water daily. 6. Maintain low carbohydrate diet 7. Follow up with Dr. Jean Baptiste next week (04/16/17) 8. For any new or worsening symptoms or concerns, contact Dr. Jean Baptiste immediately or return to ER Referrals: Kristina Malloy MD [Medical Doctor] - Ez Jean Baptiste MD [Staff Provider] -
[2017-04-09] MEDS ORDERED: Insulin Detemir 100 units/ml Vial (Levemir) SC SCH (22:00)
== END 2017-04-09 17:29 | disposition home or self-care (01) | DRG 637 ==
LOC: ED 17:19 → ERH 22:16 → CCU 23:43 → 5RSO 04-08 15:22
PROVIDERS: ADMIT Internal Medicine; ATTEND Internal Medicine
DX: E13.10 Other specified diabetes mellitus with ketoacidosis without coma (principal); K85.90 Acute pancreatitis without necrosis or infection, unspecified; E86.0 Dehydration; E78.2 Mixed hyperlipidemia; I10 Essential (primary) hypertension; Z79.4 Long term (current) use of insulin; E87.6 Hypokalemia; Z91.14 Patient's other noncompliance with medication regimen; Z91.19 Patient's noncompliance with other medical treatment and regimen